=== PATIENT | male | born 1960 | race Caucasian/White ===

== ENCOUNTER 2017-03-06 08:34 | Inpatient (IN) | payer OTHER, MEDICAID ==
[~2017-03-06] VITALS: Ht 193 cm; Wt 96.8 kg
[2017-03-06] VITALS (12 sets, daily range): BP systolic 93–115; BP diastolic 44–62
[2017-03-06] MEDS ORDERED: COLL30OI TP (09:14)
[2017-03-06] MEDS ORDERED: AMIO200T2 PO (09:14)
[2017-03-06] MEDS ORDERED: NICO-650 TD (09:14)
[2017-03-06] MEDS ORDERED: LACT30L PO (09:14)
[2017-03-06] MEDS ORDERED: ACET-784 PO (09:14)
[2017-03-06] MEDS ORDERED: FAMO20 PO (09:14)
[2017-03-06] MEDS ORDERED: DSS100 PO (09:14)
[2017-03-06] MEDS ORDERED: CEFE2I IVP (09:14)
[2017-03-06] MEDS ORDERED: SUCR1TAB PO (09:14)
[2017-03-06] MEDS ORDERED: ACET-66 PO (09:14)
[2017-03-06] MEDS ORDERED: VANC750F IV (09:14)
[2017-03-06] MEDS ORDERED: HEPA500017 SQ (09:14)
[2017-03-06] MEDS ORDERED: BISA10S PR (09:14)
[2017-03-06] MEDS ORDERED: TRAM50TA4 PO (09:14)
[2017-03-06] MEDS ORDERED: RISP1 PO (09:14)
[2017-03-06] MEDS ORDERED: GABA-533 PO (09:14)
[2017-03-06] MEDS ORDERED: FE PR (09:14)
[2017-03-06] MEDS ORDERED: DILT30 PO (09:14)
[2017-03-06] MEDS ORDERED: LISI-661 PO (09:14)
[2017-03-06] MEDS ORDERED: MOM30 PO (09:14)
[2017-03-06] MEDS ORDERED: INSULIN LISPRO SQ (09:14)
[2017-03-06] MEDS ORDERED: SODIUM CHLORIDE 0.9% 1,000 ML IV ONE ×3 (10:15→11:30)
[2017-03-06 10:36] LABS: BASOPHILS # (AUTO) 0.01 K/uL (0.00-0.20); BASOPHILS % (AUTO) 0.1 % (0.0-2.0); EOSINOPHILS % (AUTO) 0.03 % (1.0-6.0); HEMATOCRIT 23.2 % (41-53); HEMOGLOBIN 7.8 g/dL (13.5-17.5); LYMPHOCYTES # (AUTO) 0.4 K/uL (1.0-4.8); LYMPHOCYTES % (AUTO) 8.1 % (22.0-44.0); MEAN CORPUSCULAR HEMOGLOBIN 27.4 pg (26.0-34.0); MEAN CORPUSCULAR HGB CONC 33.8 G/dL (31.0-37.0); MEAN CORPUSCULAR VOLUME 81 fL (80-100); MONOCYTES # (AUTO) 0.4 K/uL (0.1-1.0); MONOCYTES % (AUTO) 7.1 % (2.0-9.0); NEUTROPHILS # (AUTO) 4.7 K/uL (1.8-7.7); NEUTROPHILS % (AUTO) 84.7 % (40.0-70.0); PLATELET COUNT (AUTO) 406 K/uL (150-450); RED BLOOD CELL COUNT(AUTO) 2.86 MIL/uL (4.50-5.90); RED CELL DISTRIBUTION WIDTH 17.5 % (11.5-14.5); WHITE BLOOD COUNT (AUTO) 5.5 K/uL (4.5-11.0)
[2017-03-06] MEDS ORDERED: DEXTROSE 50%-WATER 25 GM/50 ML SYRINGE IVP ONE ×2 (10:45→12:45)
[2017-03-06 10:54] LABS: SALICYLATE < 2.8 mg/dL (2.8-20.0)
[2017-03-06 10:55] LABS: ANION GAP 11 mmol/L (8-16); CALCIUM, TOTAL 8.5 mg/dL (8.8-10.5); CARBON DIOXIDE 21 mmol/L (22-29); CHLORIDE 99 mmol/L (98-107); CREATININE 2.22 mg/dL (0.60-1.30); GLOMERULAR FILTR. RATE CALC 31 mL/min (>60); LACTIC ACID 0.8 mmol/L (0.4-2.0); POTASSIUM 3.9 mmol/L (3.5-5.1); SODIUM SERUM 131 mmol/L (136-145); UREA NITROGEN, BLOOD 74 mg/dL (7-18)
[2017-03-06 10:57] LABS: TROPONIN I 0.07 ng/mL (0.00-0.05)
[2017-03-06 10:59] LABS: ALANINE AMINOTRANSFERASE 19 U/L (12-78); ALBUMIN 1.7 g/dL (3.4-5.0); ASPARTATE AMINOTRANSFERASE 37 U/L (15-37); BILIRUBIN,TOTAL 0.3 mg/dL (0.1-1.0); TOTAL PROTEIN, SERUM 7.4 g/dL (6.4-8.2)
[2017-03-06 11:02] LABS: RBC MORPHOLOGY COMMENT ABNORMAL RBC MORPH
[2017-03-06 11:04] LABS: B-TYPE NATRIURETIC PEPTIDE 548 pg/mL (0-100)
[2017-03-06 11:16] LABS: ACETAMINOPHEN < 2 mcg/mL (10-30)
[2017-03-06 11:30] LABS: INR 1.1 (0.9-1.1); PROTHROMBIN TIME 11.5 SEC (9.4-11.6)
[2017-03-06 12:05] LABS: GLUCOSE, URINE (UA) NEGATIVE (NEGATIVE); KETONES,URINE NEGATIVE (NEGATIVE); LEUKOCYTE ESTERASE ,URINE NEGATIVE (NEGATIVE); OCCULT BLOOD,URINE LARGE (NEGATIVE); PROTEIN,URINE POS 1+ (NEGATIVE)
[2017-03-06 12:08] LABS: APPEARANCE,URINE HAZY (CLEAR); WBC,URINE 0-2 /HPF (0-5)
[2017-03-06] MEDS ORDERED: ONDANSETRON HCL 4 MG/2 ML VIAL IVP PRN ×2 (13:30→19:15)
[2017-03-06] MEDS ORDERED: ACETAMINOPHEN 325 MG TABLET PO PRN ×2 (13:30→19:15)
[2017-03-06] MEDS ORDERED: 0.9% SODIUM CHLORIDE 10 ML SYRINGE IVP PRN (13:30)
[2017-03-06 17:47] LABS: GLUCOSE,POINT OF CARE 136 MG/DL (70-110)
[2017-03-06 17:47] LABS: GLUCOSE,POINT OF CARE 61 MG/DL (70-110)
[2017-03-06 17:47] LABS: GLUCOSE,POINT OF CARE 68 MG/DL (70-110)
[2017-03-06 17:47] LABS: GLUCOSE,POINT OF CARE 103 MG/DL (70-110)
[2017-03-06 17:52] LABS: GLUCOSE,POINT OF CARE 95 MG/DL (70-110)
[2017-03-06 17:52] LABS: GLUCOSE,POINT OF CARE 119 MG/DL (70-110)
[2017-03-06 18:12] LABS: GLUCOSE,POINT OF CARE 137 MG/DL (70-110)
[2017-03-06] MEDS ORDERED: DEXTROSE 50%-WATER 25 GM/50 ML SYRINGE IVP PRN (19:00)
[2017-03-06] MEDS ORDERED: NICOTINE 21 MG/24 HOUR PATCH TD SCH (19:15)
[2017-03-06] MEDS ORDERED: *CLINICAL-CEFEPIME DOSING CLINICAL ONE ×2 (19:15)
[2017-03-06 20:06] LABS: HEMATOCRIT 21.4 % (41-53); HEMOGLOBIN 7.1 g/dL (13.5-17.5)
[2017-03-06] MEDS ORDERED: VANCOMYCIN HCL 1.5 GM in DEXTROSE 5%-WATER 250 ML IV ONE (21:00)
[2017-03-06] MEDS ORDERED: CEFEPIME HCL 1 GM in DEXTROSE 5%-WATER 50 ML IV ONE (21:00)
[2017-03-06] MEDS: RisperiDONE 1 MG TABLET PO SCH (22:29)
[2017-03-06] MEDS: SUCRALFATE 1 GM TABLET PO SCH (22:29)
[2017-03-06] MEDS: DILTIAZEM HCL 30 MG TABLET PO SCH (22:30)
[2017-03-06] MEDS: AMIODARONE HCL 200 MG TABLET PO SCH (22:30)
[2017-03-06] MEDS: LACTULOSE 20 GM/30 ML SOLUTION UDCUP PO SCH (22:30)
[2017-03-06] MEDS: FAMOTIDINE 20 MG TABLET PO SCH (22:30)
[2017-03-06] MEDS: DOCUSATE SODIUM 100 MG CAPSULE PO SCH (22:50)
[2017-03-06] MEDS: SODIUM CHLORIDE 0.9% 1,000 ML IV SCH (22:51)
[2017-03-06] MEDS: GABAPENTIN 400 MG CAPSULE PO SCH (23:24)
[2017-03-07] VITALS (11 sets, daily range): BP systolic 103–158; BP diastolic 49–98
[2017-03-07] MEDS ORDERED: SODIUM CHLORIDE 0.9% 250 ML IV ONE (00:51)
[2017-03-07 07:08] LABS: BASOPHILS # (AUTO) 0.02 K/uL (0.00-0.20); BASOPHILS % (AUTO) 0.2 % (0.0-2.0); EOSINOPHILS # (AUTO) 0.02 K/uL (0.00-0.70); EOSINOPHILS % (AUTO) 0.38 % (1.0-6.0); HEMATOCRIT 23.3 % (41-53); HEMOGLOBIN 7.8 g/dL (13.5-17.5); LYMPHOCYTES # (AUTO) 1.1 K/uL (1.0-4.8); LYMPHOCYTES % (AUTO) 17.8 % (22.0-44.0); MEAN CORPUSCULAR HEMOGLOBIN 27.9 pg (26.0-34.0); MEAN CORPUSCULAR HGB CONC 33.6 G/dL (31.0-37.0); MEAN CORPUSCULAR VOLUME 83 fL (80-100); MONOCYTES # (AUTO) 0.6 K/uL (0.1-1.0); NEUTROPHILS # (AUTO) 4.6 K/uL (1.8-7.7); NEUTROPHILS % (AUTO) 72.6 % (40.0-70.0); PLATELET COUNT (AUTO) 363 K/uL (150-450); RED BLOOD CELL COUNT(AUTO) 2.81 MIL/uL (4.50-5.90); RED CELL DISTRIBUTION WIDTH 17.2 % (11.5-14.5); WHITE BLOOD COUNT (AUTO) 6.3 K/uL (4.5-11.0)
[2017-03-07 07:47] LABS: ALBUMIN 1.8 g/dL (3.4-5.0); BILIRUBIN,TOTAL 0.4 mg/dL (0.1-1.0); CALCIUM, TOTAL 8.1 mg/dL (8.8-10.5); POTASSIUM 3.7 mmol/L (3.5-5.1); THYROID STIMULATING HORMONE 19.28 uIU/mL (0.36-3.74); TOTAL PROTEIN, SERUM 7.7 g/dL (6.4-8.2)
[2017-03-07] MEDS: FOLIC ACID 1 MG TABLET PO SCH (09:50)
[2017-03-07] MEDS: VANCOMYCIN HCL 1.5 GM in DEXTROSE 5%-WATER 250 ML IV SCH (09:50)
[2017-03-07] MEDS: BISACODYL 10 MG RECTAL RECTAL SUPPOSITORY PR SCH (09:50)
[2017-03-07] MEDS: GABAPENTIN 400 MG CAPSULE PO SCH ×3 (09:51→20:59)
[2017-03-07] MEDS: MULTIVITAMINS, THERAPEUTIC TABLET PO SCH (09:51)
[2017-03-07] MEDS: MAGNESIUM HYDROXIDE SUSPENSION 30 ML UDCUP PO SCH (09:51)
[2017-03-07] MEDS: DOCUSATE SODIUM 100 MG CAPSULE PO SCH ×2 (09:51→19:57)
[2017-03-07] MEDS: LACTULOSE 20 GM/30 ML SOLUTION UDCUP PO SCH ×3 (09:52→19:57)
[2017-03-07] MEDS: DILTIAZEM HCL 30 MG TABLET PO SCH ×3 (09:52→20:59)
[2017-03-07] MEDS: SUCRALFATE 1 GM TABLET PO SCH ×4 (09:52→20:59)
[2017-03-07] MEDS: RisperiDONE 1 MG TABLET PO SCH ×2 (09:53→20:59)
[2017-03-07] MEDS: FAMOTIDINE 20 MG TABLET PO SCH ×2 (09:54→20:59)
[2017-03-07] MEDS: AMIODARONE HCL 200 MG TABLET PO SCH ×2 (09:54→19:58)
[2017-03-07] MEDS: THIAMINE HCL 100 MG TABLET PO SCH (09:56)
[2017-03-07 10:41] LABS: RBC MORPHOLOGY COMMENT ABNORMAL RBC MORPH
[2017-03-07 11:52] LABS: GLUCOSE,POINT OF CARE 249 MG/DL (70-110)
[2017-03-07 11:52] LABS: GLUCOSE,POINT OF CARE 241 MG/DL (70-110)
[2017-03-07 11:52] LABS: GLUCOSE COMMENT 1 Doctor Notified; GLUCOSE,POINT OF CARE 305 MG/DL (70-110)
[2017-03-07] MEDS: SODIUM CHLORIDE 0.9% 1,000 ML IV SCH (14:10)
[2017-03-07] MEDS: CEFEPIME HCL 2 GM in DEXTROSE 5%-WATER 50 ML IV SCH (14:10)
[2017-03-07] MEDS: TraMADol HCL 50 MG TABLET PO PRN (14:25)
[2017-03-07 18:36] LABS: RED BLOOD CELL COUNT(AUTO) 2.85 MIL/uL (4.50-5.90); WHITE BLOOD COUNT (AUTO) 6.1 K/uL (4.5-11.0)
[2017-03-07 18:37] LABS: BASOPHILS % (AUTO) 0.2 % (0.0-2.0); EOSINOPHILS % (AUTO) 0.6 % (1.0-6.0); HEMATOCRIT 23.8 % (41-53); HEMOGLOBIN 8.1 g/dL (13.5-17.5); LYMPHOCYTES # (AUTO) 1.3 K/uL (1.0-4.8); LYMPHOCYTES % (AUTO) 20.9 % (22.0-44.0); MEAN CORPUSCULAR HEMOGLOBIN 28.3 pg (26.0-34.0); MEAN CORPUSCULAR HGB CONC 33.8 G/dL (31.0-37.0); MEAN CORPUSCULAR VOLUME 84 fL (80-100); MONOCYTES # (AUTO) 0.5 K/uL (0.1-1.0); MONOCYTES % (AUTO) 8.8 % (2.0-9.0); NEUTROPHILS # (AUTO) 4.2 K/uL (1.8-7.7); NEUTROPHILS % (AUTO) 69.5 % (40.0-70.0); PLATELET COUNT (AUTO) 377 K/uL (150-450); RED CELL DISTRIBUTION WIDTH 16.8 % (11.5-14.5)
[2017-03-07] MEDS: SOD FERRIC GLUC COMPLX/SUCROSE 125 MG in SODIUM CHLORIDE 0.9% 100 ML IV SCH (19:57)
[2017-03-07 20:02] LABS: GLUCOSE COMMENT 1 Received Meds; GLUCOSE,POINT OF CARE 229 MG/DL (70-110)
[2017-03-07 20:32] LABS: GLUCOSE COMMENT 1 Received Meds; GLUCOSE,POINT OF CARE 286 MG/DL (70-110)
[2017-03-07 21:02] LABS: GLUCOSE COMMENT 1 Received Meds; GLUCOSE,POINT OF CARE 261 MG/DL (70-110)
[2017-03-08 04:00] VITALS: BP 109/58
[2017-03-08] MEDS: SODIUM CHLORIDE 0.9% 1,000 ML IV SCH (04:23)
[2017-03-08 07:12] LABS: CALCIUM, TOTAL 7.9 mg/dL (8.8-10.5); CREATININE 1.93 mg/dL (0.60-1.30); POTASSIUM 3.7 mmol/L (3.5-5.1)
[2017-03-08 07:54] VITALS: BP 100/50
[2017-03-08] MEDS ORDERED: NICOTINE 21 MG/24 HOUR PATCH TD SCH ×2 (08:51→09:00)
[2017-03-08] MEDS: GABAPENTIN 400 MG CAPSULE PO SCH ×2 (09:00→16:25)
[2017-03-08] MEDS: RisperiDONE 1 MG TABLET PO SCH (09:00)
[2017-03-08] MEDS: DILTIAZEM HCL 30 MG TABLET PO SCH ×2 (09:00→16:25)
[2017-03-08] MEDS: LACTULOSE 20 GM/30 ML SOLUTION UDCUP PO SCH ×2 (09:09→16:25)
[2017-03-08] MEDS: FAMOTIDINE 20 MG TABLET PO SCH (09:09)
[2017-03-08] MEDS: SUCRALFATE 1 GM TABLET PO SCH ×3 (09:09→16:25)
[2017-03-08] MEDS: MULTIVITAMINS, THERAPEUTIC TABLET PO SCH (09:10)
[2017-03-08] MEDS: AMIODARONE HCL 200 MG TABLET PO SCH (09:10)
[2017-03-08] MEDS: THIAMINE HCL 100 MG TABLET PO SCH (09:10)
[2017-03-08] MEDS: DOCUSATE SODIUM 100 MG CAPSULE PO SCH (09:11)
[2017-03-08] MEDS: FOLIC ACID 1 MG TABLET PO SCH (09:11)
[2017-03-08] MEDS: VANCOMYCIN HCL 1.5 GM in DEXTROSE 5%-WATER 250 ML IV SCH (09:21)
[2017-03-08 12:04] VITALS: BP 99/67
[2017-03-08] MEDS: CEFEPIME HCL 2 GM in DEXTROSE 5%-WATER 50 ML IV SCH (12:23)
[2017-03-08] MEDS: MAGNESIUM HYDROXIDE SUSPENSION 30 ML UDCUP PO SCH (12:23)
[2017-03-08 12:31] VITALS: BP 110/79
[2017-03-08] MEDS ORDERED: PNEUMOCOCCAL VACCINE POLYVALENT 0.5 ML VIAL [PPSV23] IM ONE (15:15)
[2017-03-08 15:50] VITALS: BP 110/59
[2017-03-08] MEDS: BISACODYL 10 MG RECTAL RECTAL SUPPOSITORY PR SCH (16:06)
[2017-03-08] MEDS: SOD FERRIC GLUC COMPLX/SUCROSE 125 MG in SODIUM CHLORIDE 0.9% 100 ML IV SCH (16:26)
[2017-03-08] MEDS ORDERED: FOLI1 PO (17:16)
[2017-03-08] MEDS ORDERED: MULT1TAB28 PO (17:17)
[2017-03-08] MEDS ORDERED: THIA100 PO (17:18)
[2017-03-08] MEDS ORDERED: INSULIN ASPART 100 UNITS/ML SQ ONE (17:30)
[2017-03-08] MEDS: TraMADol HCL 50 MG TABLET PO PRN (18:30)
[2017-03-09 08:57] LABS: GLUCOSE,POINT OF CARE 191 MG/DL (70-110)
[2017-03-09 08:57] LABS: GLUCOSE,POINT OF CARE 392 MG/DL (70-110)
[2017-03-09 08:57] LABS: GLUCOSE,POINT OF CARE 239 MG/DL (70-110)
== END 2017-03-08 18:30 | DRG 682 ==
LOC: EMS 08:36 → AHU 17:10 → 5S 22:35
PROVIDERS: ADMIT Internal Medicine; ATTEND Internal Medicine
PROC: 30233N1 Transfusion of Nonautologous Red Blood Cells into Peripheral Vein, Percutaneous Approach (ICD-10-PCS; principal; 2017-03-06)
DX: N17.9 Acute kidney failure, unspecified (principal); G92 Toxic encephalopathy; R18.8 Other ascites; E11.649 Type 2 diabetes mellitus with hypoglycemia without coma; M86.9 Osteomyelitis, unspecified; E87.1 Hypo-osmolality and hyponatremia; E86.0 Dehydration; D64.9 Anemia, unspecified; I73.9 Peripheral vascular disease, unspecified; I10 Essential (primary) hypertension; E11.69 Type 2 diabetes mellitus with other specified complication; K21.9 Gastro-esophageal reflux disease without esophagitis; K80.20 Calculus of gallbladder without cholecystitis without obstruction; Z86.14 Personal history of Methicillin resistant Staphylococcus aureus infection; Z89.422 Acquired absence of other left toe(s); Z89.421 Acquired absence of other right toe(s); Z88.0 Allergy status to penicillin
CPT/HCPCS: 36430; 70450; 73552; 73718; 76705; 82270; 82271; 82607; 82728; 82746; 82948; 82962; 83540; 83550; 83605; 84439; 84443; 85014; 85018; 86850; 86900; 86901; 86920; 87040; 87070; 87081; 87106; 87205; 90471; 93005; 96361; 96374; 99285; G0480; G0481; J0692; J1815; J2916; J3370; J7030; J7050; J7060; P9016

== ENCOUNTER 2017-03-16 15:48 | Inpatient (IN) | payer OTHER, MEDICAID ==
[~2017-03-16] VITALS: Ht 193 cm; Wt 93.5 kg
[~2017-03-16 15:48] MED LIST: ACET-66 PO; ACET-784 PO; AMIO200T2 PO; BISA10S PR; CEFE2I IVP; COLL30OI TP; DILT30 PO; DSS100 PO; FAMO20 PO; FE PR; FOLI1 PO; GABA-533 PO; HEPA500018 SQ; INSULIN LISPRO SQ; LACT30L PO; LISI-661 PO; MOM30 PO; MULT1TAB28 PO; NICO-650 TD; RISP1 PO; SUCR1TAB PO; THIA100 PO; TRAM50TA4 PO; VANC750F IV
[2017-03-16] MEDS ORDERED: SODIUM CHLORIDE 0.9% 1,000 ML IV ONE ×2 (16:15→17:15)
[2017-03-16 16:33] LABS: EOSINOPHILS % (AUTO) 0.6 % (1.0-6.0); HEMATOCRIT 23.6 % (41-53); LYMPHOCYTES # (AUTO) 0.9 K/uL (1.0-4.8); LYMPHOCYTES % (AUTO) 9.6 % (22.0-44.0); MEAN CORPUSCULAR HEMOGLOBIN 28.3 pg (26.0-34.0); MEAN CORPUSCULAR HGB CONC 33.7 G/dL (31.0-37.0); MEAN CORPUSCULAR VOLUME 84 fL (80-100); MONOCYTES # (AUTO) 1.2 K/uL (0.1-1.0); MONOCYTES % (AUTO) 11.8 % (2.0-9.0); NEUTROPHILS # (AUTO) 7.7 K/uL (1.8-7.7); PLATELET COUNT (AUTO) 437 K/uL (150-450); RED BLOOD CELL COUNT(AUTO) 2.82 MIL/uL (4.50-5.90); RED CELL DISTRIBUTION WIDTH 17.9 % (11.5-14.5); WHITE BLOOD COUNT (AUTO) 9.9 K/uL (4.5-11.0)
[2017-03-16 16:49] LABS: ALANINE AMINOTRANSFERASE 18 U/L (12-78); ALBUMIN 1.9 g/dL (3.4-5.0); ANION GAP 15 mmol/L (8-16); ASPARTATE AMINOTRANSFERASE 45 U/L (15-37); BILIRUBIN,TOTAL 0.4 mg/dL (0.1-1.0); CALCIUM, TOTAL 7.9 mg/dL (8.8-10.5); CARBON DIOXIDE 17 mmol/L (22-29); CHLORIDE 91 mmol/L (98-107); CREATININE 2.79 mg/dL (0.60-1.30); GLOMERULAR FILTR. RATE CALC 24 mL/min (>60); POTASSIUM 4.8 mmol/L (3.5-5.1); TOTAL PROTEIN, SERUM 8.1 g/dL (6.4-8.2)
[2017-03-16 16:51] LABS: SODIUM SERUM 123 mmol/L (136-145)
[2017-03-16 16:52] LABS: UREA NITROGEN, BLOOD 110 mg/dL (7-18)
[2017-03-16] MEDS ORDERED: INSU100C14 SQ (17:06)
[2017-03-16 17:07] LABS: RBC MORPHOLOGY COMMENT ABNORMAL RBC MORPH
[2017-03-16 18:01] LABS: LACTIC ACID 2.2 mmol/L (0.4-2.0)
[2017-03-16] MEDS ORDERED: ACETAMINOPHEN 325 MG TABLET PO PRN (18:15)
[2017-03-16] MEDS ORDERED: ONDANSETRON HCL 4 MG/2 ML VIAL IVP PRN (18:15)
[2017-03-16] MEDS ORDERED: 0.9% SODIUM CHLORIDE 10 ML SYRINGE IVP PRN (18:15)
[2017-03-16 18:22] LABS: GLUCOSE,POINT OF CARE 289 MG/DL (70-110)
[2017-03-16 18:28] LABS: REFLEX LACTIC ACID? YES YES
[2017-03-16 20:10] VITALS: BP 117/63
[2017-03-16 23:24] VITALS: BP 106/55
[2017-03-17] MEDS ORDERED: OxyCODONE HCL/ACETAMINOPHEN 5-325 MG TABLET PO PRN (01:00)
[2017-03-17] MEDS ORDERED: MAGNESIUM HYDROXIDE SUSPENSION 30 ML UDCUP PO PRN (01:00)
[2017-03-17] MEDS ORDERED: ONDANSETRON HCL 4 MG/2 ML VIAL IVP PRN (01:00)
[2017-03-17] MEDS ORDERED: ACETAMINOPHEN 325 MG TABLET PO PRN (01:00)
[2017-03-17] MEDS: DOCUSATE SODIUM 100 MG CAPSULE PO SCH ×3 (01:00→20:06)
[2017-03-17] MEDS ORDERED: 0.9% SODIUM CHLORIDE 10 ML SYRINGE IVP PRN (01:00)
[2017-03-17] MEDS: SODIUM CHLORIDE 0.9% 1,000 ML IV SCH ×3 (01:21→20:03)
[2017-03-17 05:35] VITALS: BP 114/59
[2017-03-17 06:54] LABS: CALCIUM, TOTAL 7.8 mg/dL (8.8-10.5); CREATININE 2.68 mg/dL (0.60-1.30); MAGNESIUM 1.9 mg/dL (1.80-2.40); PHOSPHORUS 4.7 mg/dL (2.5-4.9); POTASSIUM 4.6 mmol/L (3.5-5.1)
[2017-03-17 08:04] VITALS: BP 116/68
[2017-03-17] MEDS ORDERED: DEXTROSE 50%-WATER 25 GM/50 ML SYRINGE IVP PRN (08:45)
[2017-03-17] MEDS ORDERED: INSULIN ASPART 100 UNITS/ML SQ PRN (08:45)
[2017-03-17] MEDS ORDERED: PANTOPRAZOLE SODIUM 40 MG/VIAL IVP SCH (09:00)
[2017-03-17 11:52] VITALS: BP 116/80
[2017-03-17] MEDS ORDERED: INSULIN REGULAR, HUMAN 100 UNITS/ML SQ ONE (12:30)
[2017-03-17] MEDS ORDERED: INSULIN ASPART 100 UNITS/ML SQ ONE (12:30)
[2017-03-17 13:07] LABS: GLUCOSE COMMENT 1 Received Meds; GLUCOSE,POINT OF CARE 511 MG/DL (70-110)
[2017-03-17] MEDS: NICOTINE 21 MG/24 HOUR PATCH TD SCH (15:15)
[2017-03-17] MEDS: FAMOTIDINE 20 MG TABLET PO SCH ×2 (15:15→23:00)
[2017-03-17] MEDS ORDERED: CEFEPIME HCL 2 GM/VIAL IVP SCH (15:15)
[2017-03-17] MEDS ORDERED: VANCOMYCIN HCL 1 GM/D5% WATER 200 ML IV PRN (15:30)
[2017-03-17 16:24] VITALS: BP 119/65
[2017-03-17] MEDS: HEPARIN SODIUM,PORCINE 5,000 UNITS/ML VIAL SQ SCH ×2 (17:40→20:04)
[2017-03-17] MEDS: DILTIAZEM HCL 30 MG TABLET PO SCH ×2 (17:40→20:05)
[2017-03-17] MEDS: GABAPENTIN 400 MG CAPSULE PO SCH ×2 (17:40→20:05)
[2017-03-17] MEDS: SUCRALFATE 1 GM TABLET PO SCH ×2 (17:40→20:05)
[2017-03-17] MEDS: LACTULOSE 20 GM/30 ML SOLUTION UDCUP PO SCH ×2 (17:40→20:03)
[2017-03-17] MEDS: CEFEPIME HCL 2 GM in DEXTROSE 5%-WATER 50 ML IV SCH (17:40)
[2017-03-17] MEDS: INSULIN ASPART 100 UNITS/ML SQ PRN ×2 (17:57→20:12)
[2017-03-17] MEDS ORDERED: VANCOMYCIN HCL 1 GM/D5% WATER 200 ML IV ONE (18:00)
[2017-03-17 19:38] VITALS: BP 114/64
[2017-03-17] MEDS ORDERED: VANCOMYCIN HCL 750 MG in DEXTROSE 5%-WATER 150 ML IV SCH (20:00)
[2017-03-17] MEDS: LISINOPRIL 10 MG TABLET PO SCH (20:05)
[2017-03-17] MEDS: AMIODARONE HCL 200 MG TABLET PO SCH (20:05)
[2017-03-17] MEDS: RisperiDONE 1 MG TABLET PO SCH (20:05)
[2017-03-17 22:22] LABS: GLUCOSE COMMENT 1 Received Meds; GLUCOSE,POINT OF CARE 315 MG/DL (70-110)
[2017-03-17 22:23] LABS: GLUCOSE COMMENT 1 Received Meds; GLUCOSE,POINT OF CARE 206 MG/DL (70-110)
[2017-03-17 23:30] VITALS: BP 102/47
[2017-03-18] MEDS: CEFEPIME HCL 2 GM in DEXTROSE 5%-WATER 50 ML IV SCH ×2 (05:05→16:04)
[2017-03-18 05:14] VITALS: BP 95/51
[2017-03-18] MEDS: INSULIN ASPART 100 UNITS/ML SQ PRN ×4 (06:05→21:00)
[2017-03-18] MEDS: SODIUM CHLORIDE 0.9% 1,000 ML IV SCH (07:00)
[2017-03-18 07:06] LABS: EOSINOPHILS % (AUTO) 0.1 % (1.0-6.0); HEMATOCRIT 21.1 % (41-53); HEMOGLOBIN 7.2 g/dL (13.5-17.5); LYMPHOCYTES # (AUTO) 0.6 K/uL (1.0-4.8); LYMPHOCYTES % (AUTO) 5.8 % (22.0-44.0); MEAN CORPUSCULAR HEMOGLOBIN 30.1 pg (26.0-34.0); MEAN CORPUSCULAR VOLUME 89 fL (80-100); MONOCYTES # (AUTO) 0.9 K/uL (0.1-1.0); MONOCYTES % (AUTO) 8.3 % (2.0-9.0); NEUTROPHILS # (AUTO) 8.9 K/uL (1.8-7.7); PLATELET COUNT (AUTO) 410 K/uL (150-450); RED BLOOD CELL COUNT(AUTO) 2.38 MIL/uL (4.50-5.90); RED CELL DISTRIBUTION WIDTH 18.4 % (11.5-14.5); WHITE BLOOD COUNT (AUTO) 10.3 K/uL (4.5-11.0)
[2017-03-18 07:19] VITALS: BP 100/55
[2017-03-18 07:39] LABS: CALCIUM, TOTAL 7.9 mg/dL (8.8-10.5); CREATININE 2.54 mg/dL (0.60-1.30); POTASSIUM 4.6 mmol/L (3.5-5.1)
[2017-03-18 07:48] LABS: GLUCOSE COMMENT 1 Received Meds; GLUCOSE,POINT OF CARE 242 MG/DL (70-110)
[2017-03-18 08:42] LABS: NEUTROPHILS % (AUTO) 85.8 % (40.0-70.0)
[2017-03-18 08:43] LABS: RBC MORPHOLOGY COMMENT ABNORMAL RBC MORPH
[2017-03-18] MEDS: BISACODYL 10 MG RECTAL RECTAL SUPPOSITORY PR SCH (09:00)
[2017-03-18] MEDS: RisperiDONE 1 MG TABLET PO SCH ×2 (09:58→20:59)
[2017-03-18] MEDS: LISINOPRIL 10 MG TABLET PO SCH ×2 (09:58→23:01)
[2017-03-18] MEDS: GABAPENTIN 400 MG CAPSULE PO SCH ×3 (09:58→20:59)
[2017-03-18] MEDS: DILTIAZEM HCL 30 MG TABLET PO SCH ×3 (09:58→20:59)
[2017-03-18] MEDS: MULTIVITAMINS, THERAPEUTIC TABLET PO SCH (09:58)
[2017-03-18] MEDS: AMIODARONE HCL 200 MG TABLET PO SCH ×2 (09:58→20:59)
[2017-03-18] MEDS: FAMOTIDINE 20 MG TABLET PO SCH ×2 (09:58→20:59)
[2017-03-18] MEDS: THIAMINE HCL 100 MG TABLET PO SCH (09:58)
[2017-03-18] MEDS: LACTULOSE 20 GM/30 ML SOLUTION UDCUP PO SCH ×3 (09:59→20:59)
[2017-03-18] MEDS: DOCUSATE SODIUM 100 MG CAPSULE PO SCH ×2 (09:59→20:59)
[2017-03-18] MEDS: MAGNESIUM HYDROXIDE SUSPENSION 30 ML UDCUP PO SCH (09:59)
[2017-03-18] MEDS: SUCRALFATE 1 GM TABLET PO SCH ×4 (09:59→23:02)
[2017-03-18] MEDS: HEPARIN SODIUM,PORCINE 5,000 UNITS/ML VIAL SQ SCH ×3 (10:00→20:59)
[2017-03-18] MEDS: NICOTINE 21 MG/24 HOUR PATCH TD SCH (10:00)
[2017-03-18] MEDS: FOLIC ACID 1 MG TABLET PO SCH (10:01)
[2017-03-18] MEDS ORDERED: SODIUM BICARBONATE 100 MEQ in SODIUM CHLORIDE 0.45% 1,000 ML IV ONE (10:15)
[2017-03-18 12:09] VITALS: BP 102/60
[2017-03-18] MEDS: OxyCODONE HCL/ACETAMINOPHEN 5-325 MG TABLET PO PRN (12:40)
[2017-03-18 15:15] VITALS: BP 110/66
[2017-03-18 19:23] LABS: GLUCOSE COMMENT 1 Received Meds; GLUCOSE,POINT OF CARE 195 MG/DL (70-110)
[2017-03-18 19:23] LABS: GLUCOSE COMMENT 1 Received Meds; GLUCOSE,POINT OF CARE 219 MG/DL (70-110)
[2017-03-18 20:51] VITALS: BP 122/55
[2017-03-18] MEDS: INSULIN DETEMIR 100 UNITS/ML SQ SCH (21:00)
[2017-03-18 23:00] VITALS: BP 94/50
[2017-03-19] VITALS (14 sets, daily range): BP systolic 95–135; BP diastolic 52–98
[2017-03-19] MEDS ORDERED: SODIUM CHLORIDE 0.9% 250 ML IV ONE ×2 (03:44→14:45)
[2017-03-19] MEDS: CEFEPIME HCL 2 GM in DEXTROSE 5%-WATER 50 ML IV SCH ×2 (03:58→16:30)
[2017-03-19] MEDS: DEXTROSE 50%-WATER 25 GM/50 ML SYRINGE IVP PRN (06:39)
[2017-03-19 06:49] LABS: CALCIUM, TOTAL 7.9 mg/dL (8.8-10.5); CREATININE 2.58 mg/dL (0.60-1.30); POTASSIUM 4.2 mmol/L (3.5-5.1)
[2017-03-19] MEDS ORDERED: VANCOMYCIN HCL 1 GM/D5% WATER 200 ML IV ONE (08:15)
[2017-03-19] MEDS: SUCRALFATE 1 GM TABLET PO SCH ×4 (08:29→23:25)
[2017-03-19] MEDS: NICOTINE 21 MG/24 HOUR PATCH TD SCH (08:29)
[2017-03-19] MEDS: GABAPENTIN 400 MG CAPSULE PO SCH ×3 (08:29→21:51)
[2017-03-19] MEDS: DILTIAZEM HCL 30 MG TABLET PO SCH ×3 (08:29→23:25)
[2017-03-19] MEDS: DOCUSATE SODIUM 100 MG CAPSULE PO SCH ×2 (08:30→21:51)
[2017-03-19] MEDS: MULTIVITAMINS, THERAPEUTIC TABLET PO SCH (08:30)
[2017-03-19] MEDS: FAMOTIDINE 20 MG TABLET PO SCH ×2 (08:30→21:51)
[2017-03-19] MEDS: THIAMINE HCL 100 MG TABLET PO SCH (08:30)
[2017-03-19] MEDS: LACTULOSE 20 GM/30 ML SOLUTION UDCUP PO SCH ×3 (08:30→21:50)
[2017-03-19] MEDS: RisperiDONE 1 MG TABLET PO SCH ×2 (08:30→21:51)
[2017-03-19] MEDS: HEPARIN SODIUM,PORCINE 5,000 UNITS/ML VIAL SQ SCH (08:30)
[2017-03-19] MEDS: AMIODARONE HCL 200 MG TABLET PO SCH ×2 (08:30→21:51)
[2017-03-19] MEDS: MAGNESIUM HYDROXIDE SUSPENSION 30 ML UDCUP PO SCH (08:30)
[2017-03-19] MEDS: LISINOPRIL 10 MG TABLET PO SCH ×2 (08:30→21:00)
[2017-03-19] MEDS: FOLIC ACID 1 MG TABLET PO SCH (08:30)
[2017-03-19] MEDS: BISACODYL 10 MG RECTAL RECTAL SUPPOSITORY PR SCH (09:00)
[2017-03-19 09:57] LABS: GLUCOSE COMMENT 1 Received Meds; GLUCOSE,POINT OF CARE 218 MG/DL (70-110)
[2017-03-19 09:58] LABS: GLUCOSE,POINT OF CARE 84 MG/DL (70-110)
[2017-03-19 09:58] LABS: GLUCOSE COMMENT 1 Juice/Food/D50 Given; GLUCOSE,POINT OF CARE 45 MG/DL (70-110)
[2017-03-19] MEDS ORDERED: SODIUM BICARBONATE 75 MEQ in SODIUM CHLORIDE 0.45% 1,000 ML IV ONE (11:00)
[2017-03-19 11:08] LABS: BASOPHILS # (AUTO) 0.01 K/uL (0.00-0.20); BASOPHILS % (AUTO) 0.1 % (0.0-2.0); EOSINOPHILS # (AUTO) 0.02 K/uL (0.00-0.70); EOSINOPHILS % (AUTO) 0.25 % (1.0-6.0); LYMPHOCYTES # (AUTO) 0.5 K/uL (1.0-4.8); LYMPHOCYTES % (AUTO) 6.3 % (22.0-44.0); MEAN CORPUSCULAR HEMOGLOBIN 30.6 pg (26.0-34.0); MEAN CORPUSCULAR HGB CONC 34.6 G/dL (31.0-37.0); MEAN CORPUSCULAR VOLUME 88 fL (80-100); MONOCYTES # (AUTO) 0.6 K/uL (0.1-1.0); MONOCYTES % (AUTO) 8.5 % (2.0-9.0); NEUTROPHILS % (AUTO) 84.8 % (40.0-70.0); PLATELET COUNT (AUTO) 400 K/uL (150-450); RED BLOOD CELL COUNT(AUTO) 2.15 MIL/uL (4.50-5.90); RED CELL DISTRIBUTION WIDTH 17.8 % (11.5-14.5); WHITE BLOOD COUNT (AUTO) 7.1 K/uL (4.5-11.0)
[2017-03-19 11:21] LABS: HEMOGLOBIN 6.6 g/dL (13.5-17.5)
[2017-03-19 11:41] LABS: RBC MORPHOLOGY COMMENT ABNORMAL RBC MORPH
[2017-03-19] MEDS: INSULIN ASPART 100 UNITS/ML SQ PRN ×3 (12:32→21:45)
[2017-03-19 13:28] LABS: GLUCOSE COMMENT 1 Received Meds; GLUCOSE,POINT OF CARE 187 MG/DL (70-110)
[2017-03-19] MEDS: INSULIN DETEMIR 100 UNITS/ML SQ SCH (21:00)
[2017-03-19] MEDS: PANTOPRAZOLE SODIUM 40 MG/VIAL IVP SCH (21:50)
[2017-03-20 02:17] LABS: GLUCOSE,POINT OF CARE 129 MG/DL (70-110)
[2017-03-20 02:17] LABS: GLUCOSE,POINT OF CARE 127 MG/DL (70-110)
[2017-03-20] MEDS ORDERED: SODIUM CHLORIDE 0.9% 250 ML IV ONE (03:07)
[2017-03-20] MEDS: CEFEPIME HCL 2 GM in DEXTROSE 5%-WATER 50 ML IV SCH ×2 (03:27→15:51)
[2017-03-20 04:48] VITALS: BP 106/88
[2017-03-20] MEDS: INSULIN ASPART 100 UNITS/ML SQ PRN ×4 (06:07→21:27)
[2017-03-20 06:14] LABS: CREATININE 2.44 mg/dL (0.60-1.30); POTASSIUM 4.6 mmol/L (3.5-5.1)
[2017-03-20 06:26] LABS: ALPHA-1 URINE (ELP) 11.8 %; ALPHA-2 URINE(ELP) 13.4 %; BETA URINE(ELP) 33.4 %; GAMMA URINE(ELP) 23.2 %; TOTAL PROTEIN URINE 20.9 mg/dL (Not Estab.)
[2017-03-20 06:31] LABS: HEMATOCRIT 21.8 % (41-53); HEMOGLOBIN 7.5 g/dL (13.5-17.5)
[2017-03-20] MEDS ORDERED: SODIUM CHLORIDE 0.9% 1,000 ML IV ONE (07:05)
[2017-03-20] MEDS: SODIUM CHLORIDE 0.9% 1,000 ML IV SCH (07:15)
[2017-03-20] MEDS: DILTIAZEM HCL 30 MG TABLET PO SCH ×3 (09:00→20:10)
[2017-03-20] MEDS: LISINOPRIL 10 MG TABLET PO SCH (09:00)
[2017-03-20] MEDS: BISACODYL 10 MG RECTAL RECTAL SUPPOSITORY PR SCH (09:00)
[2017-03-20] MEDS: PANTOPRAZOLE SODIUM 40 MG/VIAL IVP SCH ×2 (09:16→21:19)
[2017-03-20] MEDS: FAMOTIDINE 20 MG TABLET PO SCH ×2 (09:17→21:19)
[2017-03-20] MEDS: DOCUSATE SODIUM 100 MG CAPSULE PO SCH ×2 (09:17→21:19)
[2017-03-20] MEDS: LACTULOSE 20 GM/30 ML SOLUTION UDCUP PO SCH ×3 (09:17→21:19)
[2017-03-20] MEDS: RisperiDONE 1 MG TABLET PO SCH ×2 (09:17→21:00)
[2017-03-20] MEDS: MAGNESIUM HYDROXIDE SUSPENSION 30 ML UDCUP PO SCH (09:17)
[2017-03-20] MEDS: MULTIVITAMINS, THERAPEUTIC TABLET PO SCH (09:17)
[2017-03-20] MEDS: GABAPENTIN 400 MG CAPSULE PO SCH ×3 (09:17→21:19)
[2017-03-20] MEDS: AMIODARONE HCL 200 MG TABLET PO SCH ×2 (09:17→20:11)
[2017-03-20] MEDS: SUCRALFATE 1 GM TABLET PO SCH ×4 (09:17→21:00)
[2017-03-20] MEDS: FOLIC ACID 1 MG TABLET PO SCH (09:17)
[2017-03-20] MEDS: NICOTINE 21 MG/24 HOUR PATCH TD SCH (09:18)
[2017-03-20] MEDS: THIAMINE HCL 100 MG TABLET PO SCH (09:18)
[2017-03-20] MEDS: VANCOMYCIN HCL 1 GM/D5% WATER 200 ML IV SCH (09:19)
[2017-03-20 09:31] VITALS: BP 105/55
[2017-03-20 11:46] VITALS: BP 93/54
[2017-03-20] MEDS: TraMADol HCL 50 MG TABLET PO PRN (13:10)
[2017-03-20 15:31] VITALS: BP 92/53
[2017-03-20] MEDS: SODIUM CHLORIDE 1 GM TABLET PO SCH ×2 (15:51→21:19)
[2017-03-20 19:23] VITALS: BP 97/56
[2017-03-20 20:17] LABS: GLUCOSE COMMENT 1 Received Meds; GLUCOSE,POINT OF CARE 182 MG/DL (70-110)
[2017-03-20 20:28] LABS: GLUCOSE COMMENT 1 Received Meds; GLUCOSE,POINT OF CARE 213 MG/DL (70-110)
[2017-03-20 20:28] LABS: GLUCOSE,POINT OF CARE 125 MG/DL (70-110)
[2017-03-20] MEDS: INSULIN DETEMIR 100 UNITS/ML SQ SCH (21:00)
[2017-03-21] VITALS: BP 106/68
[2017-03-21 01:28] LABS: GLUCOSE COMMENT 1 Received Meds; GLUCOSE,POINT OF CARE 175 MG/DL (70-110)
[2017-03-21 01:31] LABS: BASOPHILS % (AUTO) 0.4 % (0.0-2.0); EOSINOPHILS % (AUTO) 0.4 % (1.0-6.0); LYMPHOCYTES # (AUTO) 0.6 K/uL (1.0-4.8); LYMPHOCYTES % (AUTO) 9.7 % (22.0-44.0); MEAN CORPUSCULAR HEMOGLOBIN 27.9 pg (26.0-34.0); MEAN CORPUSCULAR HGB CONC 33.3 G/dL (31.0-37.0); MEAN CORPUSCULAR VOLUME 84 fL (80-100); MONOCYTES # (AUTO) 0.7 K/uL (0.1-1.0); MONOCYTES % (AUTO) 12.7 % (2.0-9.0); NEUTROPHILS # (AUTO) 4.5 K/uL (1.8-7.7); NEUTROPHILS % (AUTO) 76.8 % (40.0-70.0); PLATELET COUNT (AUTO) 385 K/uL (150-450); RED BLOOD CELL COUNT(AUTO) 2.87 MIL/uL (4.50-5.90); RED CELL DISTRIBUTION WIDTH 18.1 % (11.5-14.5); WHITE BLOOD COUNT (AUTO) 5.8 K/uL (4.5-11.0)
[2017-03-21 01:35] LABS: CALCIUM, TOTAL 8.1 mg/dL (8.8-10.5); CREATININE 2.54 mg/dL (0.60-1.30); POTASSIUM 5.2 mmol/L (3.5-5.1)
[2017-03-21 01:41] LABS: ALBUMIN 1.7 g/dL (3.4-5.0); BILIRUBIN,TOTAL 0.4 mg/dL (0.1-1.0); TOTAL PROTEIN, SERUM 7.5 g/dL (6.4-8.2)
[2017-03-21 01:50] LABS: RBC MORPHOLOGY COMMENT ABNORMAL RBC MORPH
[2017-03-21 04:00] VITALS: BP 110/57
[2017-03-21] MEDS: CEFEPIME HCL 2 GM in DEXTROSE 5%-WATER 50 ML IV SCH ×2 (04:42→16:29)
[2017-03-21] MEDS: INSULIN ASPART 100 UNITS/ML SQ PRN ×3 (05:30→20:20)
[2017-03-21 06:50] LABS: CALCIUM, TOTAL 7.9 mg/dL (8.8-10.5); CREATININE 2.7 mg/dL (0.60-1.30); POTASSIUM 5.4 mmol/L (3.5-5.1)
[2017-03-21] MEDS: SODIUM CHLORIDE 0.9% 1,000 ML IV SCH (08:00)
[2017-03-21 08:15] VITALS: BP 111/70
[2017-03-21] MEDS: DILTIAZEM HCL 30 MG TABLET PO SCH ×3 (08:58→20:11)
[2017-03-21] MEDS: MAGNESIUM HYDROXIDE SUSPENSION 30 ML UDCUP PO SCH (09:00)
[2017-03-21] MEDS: AMIODARONE HCL 200 MG TABLET PO SCH ×2 (09:00→20:11)
[2017-03-21] MEDS: BISACODYL 10 MG RECTAL RECTAL SUPPOSITORY PR SCH (09:00)
[2017-03-21] MEDS: VANCOMYCIN HCL 1 GM/D5% WATER 200 ML IV SCH (09:12)
[2017-03-21] MEDS: NICOTINE 21 MG/24 HOUR PATCH TD SCH (09:22)
[2017-03-21] MEDS: SUCRALFATE 1 GM TABLET PO SCH ×4 (10:00→20:11)
[2017-03-21] MEDS: PANTOPRAZOLE SODIUM 40 MG/VIAL IVP SCH ×2 (10:00→20:11)
[2017-03-21] MEDS: LACTULOSE 20 GM/30 ML SOLUTION UDCUP PO SCH ×3 (10:01→20:10)
[2017-03-21] MEDS: FOLIC ACID 1 MG TABLET PO SCH (10:02)
[2017-03-21] MEDS: GABAPENTIN 400 MG CAPSULE PO SCH ×3 (10:02→20:11)
[2017-03-21] MEDS: SODIUM CHLORIDE 1 GM TABLET PO SCH ×3 (10:02→20:11)
[2017-03-21] MEDS: DOCUSATE SODIUM 100 MG CAPSULE PO SCH ×2 (10:02→20:11)
[2017-03-21] MEDS: MULTIVITAMINS, THERAPEUTIC TABLET PO SCH (10:02)
[2017-03-21] MEDS: FAMOTIDINE 20 MG TABLET PO SCH ×2 (10:02→20:11)
[2017-03-21] MEDS: THIAMINE HCL 100 MG TABLET PO SCH (10:02)
[2017-03-21] MEDS: RisperiDONE 1 MG TABLET PO SCH ×2 (10:02→20:11)
[2017-03-21] MEDS ORDERED: ALBUMIN HUMAN 25%-25GM/100ML 100 ML IV PRN (10:15)
[2017-03-21 11:07] VITALS: BP 100/68
[2017-03-21 15:17] VITALS: BP 108/70
[2017-03-21] MEDS: SODIUM BICARBONATE 650 MG TABLET PO SCH ×2 (16:30→20:11)
[2017-03-21 19:37] VITALS: BP 107/56
[2017-03-21] MEDS: OxyCODONE HCL/ACETAMINOPHEN 5-325 MG TABLET PO PRN (20:11)
[2017-03-21] MEDS: INSULIN DETEMIR 100 UNITS/ML SQ SCH (20:20)
[2017-03-21 20:43] LABS: GLUCOSE COMMENT 1 Received Meds; GLUCOSE,POINT OF CARE 163 MG/DL (70-110)
[2017-03-21 20:47] LABS: GLUCOSE,POINT OF CARE 156 MG/DL (70-110)
[2017-03-21 20:47] LABS: GLUCOSE,POINT OF CARE 206 MG/DL (70-110)
[2017-03-21 20:47] LABS: GLUCOSE,POINT OF CARE 91 MG/DL (70-110)
[2017-03-21] MEDS ORDERED: PROPOFOL 1% 20 ML VIAL IVP ONE (21:30)
[2017-03-21] MEDS ORDERED: GLYCOPYRROLATE 0.2 MG/ML VIAL IM ONE (21:30)
[2017-03-21] MEDS ORDERED: LIDOCAINE HCL/PF 2% 5 ML SYRINGE IVP ONE (21:30)
[2017-03-21] MEDS ORDERED: METOCLOPRAMIDE HCL 5 MG/ML 2 ML VIAL IVP ONE (21:30)
[2017-03-21] MEDS ORDERED: ONDANSETRON HCL 4 MG/2 ML VIAL IVP ONE (21:30)
[2017-03-22] VITALS (7 sets, daily range): BP systolic 98–138; BP diastolic 51–65
[2017-03-22] MEDS: CEFEPIME HCL 2 GM in DEXTROSE 5%-WATER 50 ML IV SCH ×2 (04:02→16:01)
[2017-03-22] MEDS: DEXTROSE 50%-WATER 25 GM/50 ML SYRINGE IVP PRN ×6 (05:49→23:30)
[2017-03-22 06:41] LABS: CALCIUM, TOTAL 8.4 mg/dL (8.8-10.5); CREATININE 2.63 mg/dL (0.60-1.30); MAGNESIUM 2.2 mg/dL (1.80-2.40); POTASSIUM 4.6 mmol/L (3.5-5.1)
[2017-03-22] MEDS: PANTOPRAZOLE SODIUM 40 MG/VIAL IVP SCH ×2 (07:56→20:01)
[2017-03-22] MEDS: SODIUM CHLORIDE 0.9% 1,000 ML IV SCH (07:57)
[2017-03-22] MEDS ORDERED: VANCOMYCIN HCL 750 MG in DEXTROSE 5%-WATER 150 ML IV SCH (08:00)
[2017-03-22] MEDS: AMIODARONE HCL 200 MG TABLET PO SCH ×2 (09:00→20:54)
[2017-03-22] MEDS: RisperiDONE 1 MG TABLET PO SCH ×2 (09:00→20:54)
[2017-03-22] MEDS: THIAMINE HCL 100 MG TABLET PO SCH (09:00)
[2017-03-22] MEDS: FOLIC ACID 1 MG TABLET PO SCH (09:00)
[2017-03-22] MEDS: MULTIVITAMINS, THERAPEUTIC TABLET PO SCH (09:00)
[2017-03-22] MEDS: SUCRALFATE 1 GM TABLET PO SCH ×4 (09:00→20:53)
[2017-03-22] MEDS: DOCUSATE SODIUM 100 MG CAPSULE PO SCH ×2 (09:00→20:54)
[2017-03-22] MEDS: NICOTINE 21 MG/24 HOUR PATCH TD SCH (09:00)
[2017-03-22] MEDS: DILTIAZEM HCL 30 MG TABLET PO SCH ×3 (09:00→20:53)
[2017-03-22] MEDS: SODIUM BICARBONATE 650 MG TABLET PO SCH ×3 (09:00→20:54)
[2017-03-22] MEDS: LACTULOSE 20 GM/30 ML SOLUTION UDCUP PO SCH ×3 (09:00→20:53)
[2017-03-22] MEDS: SODIUM CHLORIDE 1 GM TABLET PO SCH ×3 (09:00→20:54)
[2017-03-22] MEDS: FAMOTIDINE 20 MG TABLET PO SCH ×2 (09:00→20:54)
[2017-03-22] MEDS: BISACODYL 10 MG RECTAL RECTAL SUPPOSITORY PR SCH (09:00)
[2017-03-22] MEDS: GABAPENTIN 400 MG CAPSULE PO SCH ×3 (09:00→20:54)
[2017-03-22] MEDS ORDERED: DEXTROSE 10%-WATER 1,000 ML IV SCH (16:45)
[2017-03-22] MEDS ORDERED: LACTULOSE 200 GM/300 ML RECTAL SOLUTION PR ONE (16:45)
[2017-03-22] MEDS ORDERED: SODIUM CHLORIDE 0.9% IRRIG BTL 1,000 ML IRRIG ONE (18:54)
[2017-03-22 20:14] LABS: GLUCOSE,POINT OF CARE 114 MG/DL (70-110)
[2017-03-22 20:14] LABS: GLUCOSE COMMENT 1 Juice/Food/D50 Given; GLUCOSE,POINT OF CARE 49 MG/DL (70-110)
[2017-03-22 20:17] LABS: GLUCOSE,POINT OF CARE 96 MG/DL (70-110)
[2017-03-22 20:17] LABS: GLUCOSE,POINT OF CARE 102 MG/DL (70-110)
[2017-03-22 20:17] LABS: GLUCOSE,POINT OF CARE 110 MG/DL (70-110)
[2017-03-22 20:17] LABS: GLUCOSE COMMENT 1 Juice/Food/D50 Given; GLUCOSE COMMENT 2 Doctor Notified; GLUCOSE,POINT OF CARE 43 MG/DL (70-110)
[2017-03-22 20:17] LABS: GLUCOSE COMMENT 1 Juice/Food/D50 Given; GLUCOSE,POINT OF CARE 32 MG/DL (70-110)
[2017-03-22 20:17] LABS: GLUCOSE COMMENT 1 Doctor Notified; GLUCOSE,POINT OF CARE 52 MG/DL (70-110)
[2017-03-23] MEDS: DEXTROSE 10%-WATER 1,000 ML IV SCH ×2 (00:27→12:36)
[2017-03-23] MEDS: CEFEPIME HCL 2 GM in DEXTROSE 5%-WATER 50 ML IV SCH ×2 (03:28→16:18)
[2017-03-23 05:00] VITALS: BP 105/61
[2017-03-23 07:20] LABS: CALCIUM, TOTAL 8.6 mg/dL (8.8-10.5); CREATININE 2.5 mg/dL (0.60-1.30); POTASSIUM 4.9 mmol/L (3.5-5.1)
[2017-03-23 07:44] VITALS: BP 100/52
[2017-03-23] MEDS: DILTIAZEM HCL 30 MG TABLET PO SCH ×3 (09:00→21:10)
[2017-03-23] MEDS ORDERED: PIPERACILLIN SODIUM/TAZOBACTAM 2.25 GM in DEXTROSE 5%-WATER 50 ML IV SCH (09:45)
[2017-03-23] MEDS ORDERED: VANCOMYCIN HCL 500 MG in DEXTROSE 5%-WATER 100 ML IV ONE (11:00)
[2017-03-23] MEDS: DOCUSATE SODIUM 100 MG CAPSULE PO SCH ×2 (11:12→21:10)
[2017-03-23] MEDS: FOLIC ACID 1 MG TABLET PO SCH (11:13)
[2017-03-23] MEDS: AMIODARONE HCL 200 MG TABLET PO SCH ×2 (11:13→21:10)
[2017-03-23] MEDS: LACTULOSE 20 GM/30 ML SOLUTION UDCUP PO SCH ×3 (11:13→21:10)
[2017-03-23] MEDS: MULTIVITAMINS, THERAPEUTIC TABLET PO SCH (11:13)
[2017-03-23] MEDS: NICOTINE 21 MG/24 HOUR PATCH TD SCH (11:13)
[2017-03-23] MEDS: SODIUM BICARBONATE 650 MG TABLET PO SCH ×3 (11:14→21:11)
[2017-03-23] MEDS: SUCRALFATE 1 GM TABLET PO SCH ×4 (11:14→21:10)
[2017-03-23] MEDS: SODIUM CHLORIDE 1 GM TABLET PO SCH ×2 (11:14→21:11)
[2017-03-23] MEDS: FAMOTIDINE 20 MG TABLET PO SCH ×2 (11:15→21:10)
[2017-03-23] MEDS: THIAMINE HCL 100 MG TABLET PO SCH (11:15)
[2017-03-23] MEDS: RisperiDONE 1 MG TABLET PO SCH ×2 (11:15→21:10)
[2017-03-23] MEDS: GABAPENTIN 400 MG CAPSULE PO SCH ×3 (11:15→21:10)
[2017-03-23 11:39] VITALS: BP 111/49
[2017-03-23 12:11] LABS: BASOPHILS % (AUTO) 0.4 % (0.0-2.0); EOSINOPHILS % (AUTO) 0.3 % (1.0-6.0); HEMATOCRIT 23.5 % (41-53); HEMOGLOBIN 8.1 g/dL (13.5-17.5); LYMPHOCYTES # (AUTO) 1.1 K/uL (1.0-4.8); LYMPHOCYTES % (AUTO) 17.5 % (22.0-44.0); MEAN CORPUSCULAR HEMOGLOBIN 29.3 pg (26.0-34.0); MEAN CORPUSCULAR HGB CONC 34.4 G/dL (31.0-37.0); MEAN CORPUSCULAR VOLUME 85 fL (80-100); MONOCYTES % (AUTO) 16.5 % (2.0-9.0); NEUTROPHILS % (AUTO) 65.3 % (40.0-70.0); PLATELET COUNT (AUTO) 374 K/uL (150-450); RED BLOOD CELL COUNT(AUTO) 2.75 MIL/uL (4.50-5.90); WHITE BLOOD COUNT (AUTO) 6.1 K/uL (4.5-11.0)
[2017-03-23 12:20] LABS: CALCIUM, TOTAL 8.2 mg/dL (8.8-10.5); CREATININE 2.7 mg/dL (0.60-1.30); POTASSIUM 4.6 mmol/L (3.5-5.1)
[2017-03-23] MEDS: PANTOPRAZOLE SODIUM 40 MG/VIAL IVP SCH ×2 (12:23→21:10)
[2017-03-23] MEDS: BISACODYL 10 MG RECTAL RECTAL SUPPOSITORY PR SCH (12:23)
[2017-03-23 12:26] LABS: ALBUMIN 1.8 g/dL (3.4-5.0); BILIRUBIN,TOTAL 0.4 mg/dL (0.1-1.0); TOTAL PROTEIN, SERUM 7.6 g/dL (6.4-8.2)
[2017-03-23] MEDS: INSULIN ASPART 100 UNITS/ML SQ PRN (12:47)
[2017-03-23] MEDS: LORazepam 2 MG/ML VIAL IVP PRN (14:03)
[2017-03-23 15:35] VITALS: BP 101/64
[2017-03-23 17:36] VITALS: BP 110/80
[2017-03-23 20:01] VITALS: BP 123/100
[2017-03-23] MEDS: OxyCODONE HCL/ACETAMINOPHEN 5-325 MG TABLET PO PRN (21:13)
[2017-03-24] VITALS (7 sets, daily range): BP systolic 94–132; BP diastolic 46–73
[2017-03-24] MEDS: DEXTROSE 10%-WATER 1,000 ML IV SCH ×2 (04:01→16:30)
[2017-03-24] MEDS: CEFEPIME HCL 2 GM in DEXTROSE 5%-WATER 50 ML IV SCH ×2 (04:01→18:07)
[2017-03-24 05:56] LABS: BASOPHILS % (AUTO) 0.5 % (0.0-2.0); EOSINOPHILS % (AUTO) 0.8 % (1.0-6.0); HEMATOCRIT 22.6 % (41-53); HEMOGLOBIN 7.8 g/dL (13.5-17.5); LYMPHOCYTES # (AUTO) 1.4 K/uL (1.0-4.8); LYMPHOCYTES % (AUTO) 24.2 % (22.0-44.0); MEAN CORPUSCULAR HEMOGLOBIN 30.8 pg (26.0-34.0); MEAN CORPUSCULAR HGB CONC 34.6 G/dL (31.0-37.0); MEAN CORPUSCULAR VOLUME 89 fL (80-100); MONOCYTES # (AUTO) 0.9 K/uL (0.1-1.0); MONOCYTES % (AUTO) 15.5 % (2.0-9.0); NEUTROPHILS # (AUTO) 3.3 K/uL (1.8-7.7); PLATELET COUNT (AUTO) 359 K/uL (150-450); RED BLOOD CELL COUNT(AUTO) 2.54 MIL/uL (4.50-5.90); RED CELL DISTRIBUTION WIDTH 17.9 % (11.5-14.5); WHITE BLOOD COUNT (AUTO) 5.7 K/uL (4.5-11.0)
[2017-03-24 06:12] LABS: CALCIUM, TOTAL 8.3 mg/dL (8.8-10.5); CREATININE 2.42 mg/dL (0.60-1.30); POTASSIUM 4.6 mmol/L (3.5-5.1)
[2017-03-24] MEDS ORDERED: VANCOMYCIN HCL 500 MG in DEXTROSE 5%-WATER 100 ML IV SCH (08:00)
[2017-03-24] MEDS: SODIUM BICARBONATE 100 MEQ in SODIUM CHLORIDE 0.45% 1,000 ML IV SCH (09:33)
[2017-03-24] MEDS: PANTOPRAZOLE SODIUM 40 MG/VIAL IVP SCH ×2 (09:34→21:01)
[2017-03-24] MEDS: NICOTINE 21 MG/24 HOUR PATCH TD SCH (09:34)
[2017-03-24] MEDS: DILTIAZEM HCL 30 MG TABLET PO SCH ×3 (09:34→21:00)
[2017-03-24] MEDS: LACTULOSE 20 GM/30 ML SOLUTION UDCUP PO SCH ×4 (09:35→21:02)
[2017-03-24] MEDS: DOCUSATE SODIUM 100 MG CAPSULE PO SCH ×2 (09:35→21:01)
[2017-03-24] MEDS: GABAPENTIN 400 MG CAPSULE PO SCH ×3 (09:36→21:01)
[2017-03-24] MEDS: RisperiDONE 1 MG TABLET PO SCH ×2 (09:37→21:00)
[2017-03-24] MEDS: FAMOTIDINE 20 MG TABLET PO SCH ×2 (09:37→21:01)
[2017-03-24] MEDS: AMIODARONE HCL 200 MG TABLET PO SCH ×2 (09:37→21:01)
[2017-03-24] MEDS: MULTIVITAMINS, THERAPEUTIC TABLET PO SCH (09:38)
[2017-03-24] MEDS: SODIUM BICARBONATE 650 MG TABLET PO SCH ×3 (09:38→21:01)
[2017-03-24] MEDS: SUCRALFATE 1 GM TABLET PO SCH ×4 (09:38→21:01)
[2017-03-24] MEDS: BISACODYL 10 MG RECTAL RECTAL SUPPOSITORY PR SCH (09:39)
[2017-03-24] MEDS: FOLIC ACID 1 MG TABLET PO SCH (09:39)
[2017-03-24] MEDS: THIAMINE HCL 100 MG TABLET PO SCH (09:39)
[2017-03-24] MEDS: SODIUM CHLORIDE 1 GM TABLET PO SCH ×2 (09:40→21:07)
[2017-03-24 16:38] LABS: INR 1.4 (0.9-1.1); PROTHROMBIN TIME 14.4 SEC (9.4-11.6)
[2017-03-24 16:43] LABS: GLUCOSE COMMENT 1 Juice/Food/D50 Given; GLUCOSE,POINT OF CARE 38 MG/DL (70-110)
[2017-03-24 16:43] LABS: GLUCOSE,POINT OF CARE 93 MG/DL (70-110)
[2017-03-24 16:47] LABS: GLUCOSE,POINT OF CARE 118 MG/DL (70-110)
[2017-03-24 16:47] LABS: GLUCOSE COMMENT 1 Juice/Food/D50 Given; GLUCOSE,POINT OF CARE 61 MG/DL (70-110)
[2017-03-24 16:47] LABS: GLUCOSE,POINT OF CARE 114 MG/DL (70-110)
[2017-03-24 17:08] LABS: ALBUMIN 1.6 g/dL (3.4-5.0); BILIRUBIN,TOTAL 0.4 mg/dL (0.1-1.0); TOTAL PROTEIN, SERUM 7.5 g/dL (6.4-8.2)
[2017-03-24 17:15] LABS: BILIRUBIN,DIRECT 0.2 mg/dL (0.00-0.20)
[2017-03-24 21:27] LABS: GLUCOSE COMMENT 1 Received Meds; GLUCOSE,POINT OF CARE 188 MG/DL (70-110)
[2017-03-24 21:28] LABS: GLUCOSE,POINT OF CARE 101 MG/DL (70-110)
[2017-03-25] MEDS: SODIUM BICARBONATE 100 MEQ in SODIUM CHLORIDE 0.45% 1,000 ML IV SCH (00:09)
[2017-03-25 03:31] VITALS: BP 108/64
[2017-03-25] MEDS: CEFEPIME HCL 2 GM in DEXTROSE 5%-WATER 50 ML IV SCH ×2 (05:18→16:10)
[2017-03-25 05:28] LABS: GLUCOSE,POINT OF CARE 172 MG/DL (70-110)
[2017-03-25 05:28] LABS: GLUCOSE,POINT OF CARE 130 MG/DL (70-110)
[2017-03-25 06:31] LABS: BASOPHILS % (AUTO) 0.3 % (0.0-2.0); EOSINOPHILS % (AUTO) 0.3 % (1.0-6.0); HEMATOCRIT 24.5 % (41-53); HEMOGLOBIN 8.5 g/dL (13.5-17.5); LYMPHOCYTES # (AUTO) 1.6 K/uL (1.0-4.8); MEAN CORPUSCULAR HEMOGLOBIN 30.7 pg (26.0-34.0); MEAN CORPUSCULAR HGB CONC 34.5 G/dL (31.0-37.0); MEAN CORPUSCULAR VOLUME 89 fL (80-100); MONOCYTES # (AUTO) 1.3 K/uL (0.1-1.0); MONOCYTES % (AUTO) 15.6 % (2.0-9.0); NEUTROPHILS # (AUTO) 5.6 K/uL (1.8-7.7); NEUTROPHILS % (AUTO) 64.8 % (40.0-70.0); PLATELET COUNT (AUTO) 385 K/uL (150-450); RED BLOOD CELL COUNT(AUTO) 2.76 MIL/uL (4.50-5.90); WHITE BLOOD COUNT (AUTO) 8.6 K/uL (4.5-11.0)
[2017-03-25 06:58] LABS: ALBUMIN 1.7 g/dL (3.4-5.0); BILIRUBIN,TOTAL 0.4 mg/dL (0.1-1.0); CALCIUM, TOTAL 8.5 mg/dL (8.8-10.5); CREATININE 2.53 mg/dL (0.60-1.30); TOTAL PROTEIN, SERUM 7.5 g/dL (6.4-8.2)
[2017-03-25 07:18] LABS: GLUCOSE COMMENT 1 Received Meds; GLUCOSE,POINT OF CARE 166 MG/DL (70-110)
[2017-03-25 07:29] VITALS: BP 91/44
[2017-03-25] MEDS ORDERED: VANCOMYCIN HCL 1 GM/D5% WATER 200 ML IV PRN (08:30)
[2017-03-25] MEDS: SUCRALFATE 1 GM TABLET PO SCH ×4 (08:48→21:28)
[2017-03-25] MEDS: DILTIAZEM HCL 30 MG TABLET PO SCH ×3 (08:48→21:00)
[2017-03-25] MEDS: PANTOPRAZOLE SODIUM 40 MG/VIAL IVP SCH ×2 (08:48→21:25)
[2017-03-25] MEDS: DOCUSATE SODIUM 100 MG CAPSULE PO SCH ×2 (08:49→21:28)
[2017-03-25] MEDS: MULTIVITAMINS, THERAPEUTIC TABLET PO SCH (08:49)
[2017-03-25] MEDS: FOLIC ACID 1 MG TABLET PO SCH (08:49)
[2017-03-25] MEDS: LACTULOSE 20 GM/30 ML SOLUTION UDCUP PO SCH ×4 (08:49→21:28)
[2017-03-25] MEDS: AMIODARONE HCL 200 MG TABLET PO SCH ×2 (08:49→21:28)
[2017-03-25] MEDS: SODIUM CHLORIDE 1 GM TABLET PO SCH ×2 (08:50→21:28)
[2017-03-25] MEDS: SODIUM BICARBONATE 650 MG TABLET PO SCH ×3 (08:50→21:29)
[2017-03-25] MEDS: BISACODYL 10 MG RECTAL RECTAL SUPPOSITORY PR SCH (08:51)
[2017-03-25] MEDS: RisperiDONE 1 MG TABLET PO SCH ×2 (08:51→21:00)
[2017-03-25] MEDS: NICOTINE 21 MG/24 HOUR PATCH TD SCH (08:51)
[2017-03-25] MEDS: GABAPENTIN 400 MG CAPSULE PO SCH ×3 (08:52→21:28)
[2017-03-25] MEDS: FAMOTIDINE 20 MG TABLET PO SCH ×2 (08:52→21:28)
[2017-03-25] MEDS: THIAMINE HCL 100 MG TABLET PO SCH (08:53)
[2017-03-25] MEDS ORDERED: EPOETIN ALFA 10,000 UNITS/ML 2 ML VIAL SQ SCH (09:00)
[2017-03-25 09:51] VITALS: BP 125/62
[2017-03-25 10:03] LABS: RBC MORPHOLOGY COMMENT ABNORMAL RBC MORPH
[2017-03-25] MEDS: LORazepam 2 MG/ML VIAL IVP PRN ×2 (10:11→16:18)
[2017-03-25] MEDS ORDERED: MEBROFENIN TC99M/MCL ISOTOPE 1 EA INJ INJ ONE (10:40)
[2017-03-25] MEDS: SODIUM BICARBONATE 75 MEQ in DEXTROSE 5%-0.45% SODIUM CHL 1,000 ML IV SCH ×2 (11:43→21:28)
[2017-03-25 12:29] LABS: BILIRUBIN,TOTAL 0.4 mg/dL (0.1-1.0)
[2017-03-25 12:32] LABS: BILIRUBIN,DIRECT 0.2 mg/dL (0.00-0.20)
[2017-03-25 15:47] VITALS: BP 132/76
[2017-03-25 19:27] VITALS: BP 133/86
[2017-03-25] MEDS: INSULIN ASPART 100 UNITS/ML SQ PRN (21:31)
[2017-03-25 23:12] VITALS: BP 101/53
[2017-03-25 23:27] LABS: APPEARANCE,URINE CLEAR (CLEAR); GLUCOSE, URINE (UA) NEGATIVE (NEGATIVE); KETONES,URINE NEGATIVE (NEGATIVE); LEUKOCYTE ESTERASE ,URINE TRACE (NEGATIVE); OCCULT BLOOD,URINE LARGE (NEGATIVE); PROTEIN,URINE SEE CONFIRM (NEGATIVE)
[2017-03-25 23:29] LABS: ADD UA MICROSCOPIC YES
[2017-03-26 00:09] LABS: SQUAMOUS EPITHELIAL CELL,UR Rare /LPF (None Seen); SULFOSALICYLIC ACID,URINE 1+ (Negative)
[2017-03-26] MEDS: CEFEPIME HCL 2 GM in DEXTROSE 5%-WATER 50 ML IV SCH ×2 (04:07→15:15)
[2017-03-26 04:20] VITALS: BP 108/50
[2017-03-26] MEDS: INSULIN ASPART 100 UNITS/ML SQ PRN ×3 (06:06→21:41)
[2017-03-26] MEDS: SODIUM BICARBONATE 75 MEQ in DEXTROSE 5%-0.45% SODIUM CHL 1,000 ML IV SCH ×2 (06:30→18:20)
[2017-03-26 07:13] VITALS: BP 97/54
[2017-03-26 07:33] LABS: BILIRUBIN,TOTAL 0.4 mg/dL (0.1-1.0); CALCIUM, TOTAL 8.2 mg/dL (8.8-10.5); CREATININE 2.49 mg/dL (0.60-1.30); POTASSIUM 3.3 mmol/L (3.5-5.1)
[2017-03-26 07:37] LABS: BILIRUBIN,DIRECT 0.2 mg/dL (0.00-0.20)
[2017-03-26] MEDS: BISACODYL 10 MG RECTAL RECTAL SUPPOSITORY PR SCH (09:00)
[2017-03-26] MEDS: AMIODARONE HCL 200 MG TABLET PO SCH ×2 (09:00→21:49)
[2017-03-26] MEDS: DILTIAZEM HCL 30 MG TABLET PO SCH ×3 (09:00→21:00)
[2017-03-26] MEDS: PANTOPRAZOLE SODIUM 40 MG/VIAL IVP SCH ×2 (09:08→21:49)
[2017-03-26] MEDS: FOLIC ACID 1 MG TABLET PO SCH (09:09)
[2017-03-26] MEDS: LACTULOSE 20 GM/30 ML SOLUTION UDCUP PO SCH ×4 (09:09→21:49)
[2017-03-26] MEDS: SUCRALFATE 1 GM TABLET PO SCH ×4 (09:09→21:49)
[2017-03-26] MEDS: DOCUSATE SODIUM 100 MG CAPSULE PO SCH ×2 (09:09→21:49)
[2017-03-26] MEDS: NICOTINE 21 MG/24 HOUR PATCH TD SCH (09:10)
[2017-03-26] MEDS: SODIUM BICARBONATE 650 MG TABLET PO SCH (09:10)
[2017-03-26] MEDS: THIAMINE HCL 100 MG TABLET PO SCH (09:10)
[2017-03-26] MEDS: GABAPENTIN 400 MG CAPSULE PO SCH ×3 (09:11→21:49)
[2017-03-26] MEDS: SODIUM CHLORIDE 1 GM TABLET PO SCH (09:11)
[2017-03-26] MEDS: RisperiDONE 1 MG TABLET PO SCH ×2 (09:12→21:00)
[2017-03-26] MEDS: FAMOTIDINE 20 MG TABLET PO SCH ×2 (09:12→21:49)
[2017-03-26] MEDS: MULTIVITAMINS, THERAPEUTIC TABLET PO SCH (09:17)
[2017-03-26 09:59] LABS: GLUCOSE,POINT OF CARE 223 MG/DL (70-110)
[2017-03-26 10:04] LABS: GLUCOSE COMMENT 1 Received Meds; GLUCOSE,POINT OF CARE 185 MG/DL (70-110)
[2017-03-26 10:04] LABS: GLUCOSE,POINT OF CARE 169 MG/DL (70-110)
[2017-03-26 10:10] LABS: GLUCOSE COMMENT 1 Received Meds; GLUCOSE,POINT OF CARE 202 MG/DL (70-110)
[2017-03-26 11:23] VITALS: BP 121/52
[2017-03-26] MEDS ORDERED: POTASSIUM CHLORIDE 20 MEQ ER TABLET PO ONE (12:45)
[2017-03-26] MEDS: LORazepam 2 MG/ML VIAL IVP PRN (15:17)
[2017-03-26 15:48] VITALS: BP 102/54
[2017-03-26 19:23] VITALS: BP 102/80
[2017-03-27] VITALS: BP 110/53
[2017-03-27 00:38] LABS: GLUCOSE,POINT OF CARE 103 MG/DL (70-110)
[2017-03-27 00:38] LABS: GLUCOSE,POINT OF CARE 161 MG/DL (70-110)
[2017-03-27 01:02] LABS: GLUCOSE COMMENT 1 Received Meds; GLUCOSE,POINT OF CARE 213 MG/DL (70-110)
[2017-03-27] MEDS: CEFEPIME HCL 2 GM in DEXTROSE 5%-WATER 50 ML IV SCH ×2 (04:22→16:34)
[2017-03-27] MEDS: SODIUM BICARBONATE 75 MEQ in DEXTROSE 5%-0.45% SODIUM CHL 1,000 ML IV SCH (04:22)
[2017-03-27 04:44] VITALS: BP 115/69
[2017-03-27] MEDS: INSULIN ASPART 100 UNITS/ML SQ PRN ×4 (05:42→21:27)
[2017-03-27 07:05] VITALS: BP 126/79
[2017-03-27 07:20] LABS: BASOPHILS % (AUTO) 0.2 % (0.0-2.0); EOSINOPHILS % (AUTO) 0.3 % (1.0-6.0); HEMATOCRIT 26.2 % (41-53); HEMOGLOBIN 8.6 g/dL (13.5-17.5); LYMPHOCYTES # (AUTO) 1.2 K/uL (1.0-4.8); MEAN CORPUSCULAR HEMOGLOBIN 28.1 pg (26.0-34.0); MEAN CORPUSCULAR VOLUME 85 fL (80-100); MONOCYTES # (AUTO) 1.3 K/uL (0.1-1.0); MONOCYTES % (AUTO) 12.5 % (2.0-9.0); NEUTROPHILS # (AUTO) 8.2 K/uL (1.8-7.7); PLATELET COUNT (AUTO) 348 K/uL (150-450); RED BLOOD CELL COUNT(AUTO) 3.07 MIL/uL (4.50-5.90); WHITE BLOOD COUNT (AUTO) 10.7 K/uL (4.5-11.0)
[2017-03-27 07:23] LABS: RBC MORPHOLOGY COMMENT ABNORMAL RBC MORPH
[2017-03-27 07:39] LABS: CREATININE 2.68 mg/dL (0.60-1.30); POTASSIUM 3.7 mmol/L (3.5-5.1)
[2017-03-27 07:40] LABS: ALBUMIN 1.6 g/dL (3.4-5.0); BILIRUBIN,TOTAL 0.3 mg/dL (0.1-1.0); CALCIUM, TOTAL 8.3 mg/dL (8.8-10.5); TOTAL PROTEIN, SERUM 7.2 g/dL (6.4-8.2)
[2017-03-27] MEDS ORDERED: VANCOMYCIN HCL 750 MG in DEXTROSE 5%-WATER 150 ML IV ONE (09:00)
[2017-03-27] MEDS: BISACODYL 10 MG RECTAL RECTAL SUPPOSITORY PR SCH (09:00)
[2017-03-27 09:24] LABS: GLUCOSE COMMENT 1 Received Meds; GLUCOSE,POINT OF CARE 248 MG/DL (70-110)
[2017-03-27] MEDS: DILTIAZEM HCL 30 MG TABLET PO SCH ×3 (10:28→20:37)
[2017-03-27] MEDS: SUCRALFATE 1 GM TABLET PO SCH ×4 (10:28→20:38)
[2017-03-27] MEDS: PANTOPRAZOLE SODIUM 40 MG/VIAL IVP SCH ×2 (10:28→20:37)
[2017-03-27] MEDS: LACTULOSE 20 GM/30 ML SOLUTION UDCUP PO SCH ×4 (10:29→20:38)
[2017-03-27] MEDS: DOCUSATE SODIUM 100 MG CAPSULE PO SCH ×2 (10:30→20:38)
[2017-03-27] MEDS: THIAMINE HCL 100 MG TABLET PO SCH (10:31)
[2017-03-27] MEDS: RisperiDONE 1 MG TABLET PO SCH (10:31)
[2017-03-27] MEDS: AMIODARONE HCL 200 MG TABLET PO SCH ×2 (10:31→21:23)
[2017-03-27] MEDS: GABAPENTIN 400 MG CAPSULE PO SCH (10:31)
[2017-03-27] MEDS: NICOTINE 21 MG/24 HOUR PATCH TD SCH (10:31)
[2017-03-27] MEDS: MULTIVITAMINS, THERAPEUTIC TABLET PO SCH (10:31)
[2017-03-27] MEDS: FOLIC ACID 1 MG TABLET PO SCH (10:31)
[2017-03-27] MEDS: FAMOTIDINE 20 MG TABLET PO SCH ×2 (10:31→21:23)
[2017-03-27 11:30] VITALS: BP 117/72
[2017-03-27] MEDS ORDERED: DEXTROSE 5%-WATER 1,000 ML IV ONE (14:00)
[2017-03-27 15:34] VITALS: BP 107/60
[2017-03-27] MEDS: RIFAXIMIN 550 MG TABLET PO SCH ×2 (16:35→21:23)
[2017-03-27 19:53] VITALS: BP 113/58
[2017-03-28] VITALS (14 sets, daily range): BP systolic 81–114; BP diastolic 41–62
[2017-03-28] MEDS: CEFEPIME HCL 2 GM in DEXTROSE 5%-WATER 50 ML IV SCH ×2 (04:49→16:46)
[2017-03-28 06:13] LABS: HEMATOCRIT 22.9 % (41-53); HEMOGLOBIN 7.7 g/dL (13.5-17.5); MEAN CORPUSCULAR HEMOGLOBIN 30.7 pg (26.0-34.0); MEAN CORPUSCULAR HGB CONC 33.8 G/dL (31.0-37.0); MEAN CORPUSCULAR VOLUME 91 fL (80-100); PLATELET COUNT (AUTO) 298 K/uL (150-450); RED BLOOD CELL COUNT(AUTO) 2.51 MIL/uL (4.50-5.90); RED CELL DISTRIBUTION WIDTH 18.5 % (11.5-14.5); WHITE BLOOD COUNT (AUTO) 11.1 K/uL (4.5-11.0)
[2017-03-28 07:08] LABS: ALBUMIN 1.5 g/dL (3.4-5.0); BILIRUBIN,TOTAL 0.5 mg/dL (0.1-1.0); CALCIUM, TOTAL 7.9 mg/dL (8.8-10.5); CREATININE 2.71 mg/dL (0.60-1.30); POTASSIUM 3.6 mmol/L (3.5-5.1); TOTAL PROTEIN, SERUM 6.8 g/dL (6.4-8.2)
[2017-03-28 07:44] LABS: BAND NEUTROPHILS % (MANUAL) 18 % (1-5); LYMPHOCYTES % (MANUAL) 12 % (22-44); RBC MORPHOLOGY COMMENT ABNORMAL RBC MORPH; TOTAL CELLS COUNTED 100
[2017-03-28] MEDS: PANTOPRAZOLE SODIUM 40 MG/VIAL IVP SCH ×2 (08:46→20:08)
[2017-03-28] MEDS: SUCRALFATE 1 GM TABLET PO SCH ×4 (08:46→20:07)
[2017-03-28] MEDS: TraMADol HCL 50 MG TABLET PO PRN ×2 (08:47→19:02)
[2017-03-28] MEDS: AMIODARONE HCL 200 MG TABLET PO SCH ×2 (08:47→20:08)
[2017-03-28] MEDS: MULTIVITAMINS, THERAPEUTIC TABLET PO SCH (08:47)
[2017-03-28] MEDS: RIFAXIMIN 550 MG TABLET PO SCH ×3 (08:47→20:08)
[2017-03-28] MEDS: FOLIC ACID 1 MG TABLET PO SCH (08:47)
[2017-03-28] MEDS: LACTULOSE 20 GM/30 ML SOLUTION UDCUP PO SCH ×4 (08:47→20:08)
[2017-03-28] MEDS: THIAMINE HCL 100 MG TABLET PO SCH (08:47)
[2017-03-28] MEDS: DOCUSATE SODIUM 100 MG CAPSULE PO SCH ×2 (08:47→20:08)
[2017-03-28] MEDS: NICOTINE 21 MG/24 HOUR PATCH TD SCH (08:48)
[2017-03-28] MEDS: FAMOTIDINE 20 MG TABLET PO SCH ×2 (08:48→20:08)
[2017-03-28] MEDS: BISACODYL 10 MG RECTAL RECTAL SUPPOSITORY PR SCH (08:48)
[2017-03-28] MEDS: DILTIAZEM HCL 30 MG TABLET PO SCH ×3 (08:52→20:09)
[2017-03-28 08:59] LABS: GLUCOSE COMMENT 1 Received Meds; GLUCOSE,POINT OF CARE 324 MG/DL (70-110)
[2017-03-28 08:59] LABS: GLUCOSE,POINT OF CARE 261 MG/DL (70-110)
[2017-03-28 09:00] LABS: GLUCOSE COMMENT 1 Received Meds; GLUCOSE,POINT OF CARE 253 MG/DL (70-110)
[2017-03-28 11:33] LABS: GLUCOSE,POINT OF CARE 102 MG/DL (70-110)
[2017-03-28] MEDS: INSULIN ASPART 100 UNITS/ML SQ PRN ×3 (12:18→21:18)
[2017-03-28] MEDS ORDERED: SODIUM CHLORIDE 0.9% 250 ML IV ONE ×2 (13:46→16:19)
[2017-03-28 19:22] LABS: GLUCOSE,POINT OF CARE 280 MG/DL (70-110)
[2017-03-28 21:07] LABS: GLUCOSE COMMENT 1 Received Meds; GLUCOSE,POINT OF CARE 317 MG/DL (70-110)
[2017-03-29] VITALS (7 sets, daily range): BP systolic 95–145; BP diastolic 40–62
[2017-03-29] MEDS: CEFEPIME HCL 2 GM in DEXTROSE 5%-WATER 50 ML IV SCH ×2 (03:46→16:36)
[2017-03-29 06:06] LABS: BASOPHILS % (AUTO) 0.3 % (0.0-2.0); EOSINOPHILS % (AUTO) 1.3 % (1.0-6.0); HEMATOCRIT 24.2 % (41-53); HEMOGLOBIN 8.2 g/dL (13.5-17.5); LYMPHOCYTES # (AUTO) 0.7 K/uL (1.0-4.8); LYMPHOCYTES % (AUTO) 6.6 % (22.0-44.0); MEAN CORPUSCULAR HEMOGLOBIN 31.1 pg (26.0-34.0); MEAN CORPUSCULAR HGB CONC 33.8 G/dL (31.0-37.0); MEAN CORPUSCULAR VOLUME 92 fL (80-100); MONOCYTES # (AUTO) 0.8 K/uL (0.1-1.0); MONOCYTES % (AUTO) 7.1 % (2.0-9.0); NEUTROPHILS # (AUTO) 9.4 K/uL (1.8-7.7); NEUTROPHILS % (AUTO) 84.7 % (40.0-70.0); PLATELET COUNT (AUTO) 263 K/uL (150-450); RED BLOOD CELL COUNT(AUTO) 2.64 MIL/uL (4.50-5.90); RED CELL DISTRIBUTION WIDTH 17.9 % (11.5-14.5)
[2017-03-29 06:20] LABS: ALBUMIN 1.4 g/dL (3.4-5.0); BILIRUBIN,TOTAL 0.4 mg/dL (0.1-1.0); CALCIUM, TOTAL 7.7 mg/dL (8.8-10.5); CREATININE 3.3 mg/dL (0.60-1.30); POTASSIUM 3.8 mmol/L (3.5-5.1); TOTAL PROTEIN, SERUM 6.6 g/dL (6.4-8.2)
[2017-03-29] MEDS: INSULIN ASPART 100 UNITS/ML SQ PRN ×4 (06:22→20:56)
[2017-03-29 07:15] LABS: RBC MORPHOLOGY COMMENT ABNORMAL RBC MORPH
[2017-03-29] MEDS: LACTULOSE 20 GM/30 ML SOLUTION UDCUP PO SCH ×4 (07:49→20:52)
[2017-03-29] MEDS: PANTOPRAZOLE SODIUM 40 MG/VIAL IVP SCH ×2 (07:49→20:52)
[2017-03-29] MEDS: DOCUSATE SODIUM 100 MG CAPSULE PO SCH ×2 (07:49→20:52)
[2017-03-29] MEDS: SUCRALFATE 1 GM TABLET PO SCH ×4 (07:49→20:52)
[2017-03-29] MEDS: MULTIVITAMINS, THERAPEUTIC TABLET PO SCH (07:49)
[2017-03-29] MEDS: FOLIC ACID 1 MG TABLET PO SCH (07:49)
[2017-03-29] MEDS: FAMOTIDINE 20 MG TABLET PO SCH ×2 (07:50→20:52)
[2017-03-29] MEDS: DILTIAZEM HCL 30 MG TABLET PO SCH ×3 (07:50→20:53)
[2017-03-29] MEDS: NICOTINE 21 MG/24 HOUR PATCH TD SCH (07:50)
[2017-03-29] MEDS: BISACODYL 10 MG RECTAL RECTAL SUPPOSITORY PR SCH (07:50)
[2017-03-29] MEDS: THIAMINE HCL 100 MG TABLET PO SCH (07:50)
[2017-03-29] MEDS: RIFAXIMIN 550 MG TABLET PO SCH ×3 (07:50→20:51)
[2017-03-29] MEDS: AMIODARONE HCL 200 MG TABLET PO SCH ×2 (09:00→20:51)
[2017-03-29] MEDS: ALBUMIN HUMAN 25%-25GM/100ML 100 ML IV SCH ×2 (09:51→20:54)
[2017-03-29] MEDS: VANCOMYCIN HCL 750 MG in DEXTROSE 5%-WATER 150 ML IV SCH (09:51)
[2017-03-29] MEDS ORDERED: SODIUM CHLORIDE 0.9% 250 ML IV ONE (10:01)
[2017-03-29 19:33] LABS: GLUCOSE,POINT OF CARE 261 MG/DL (70-110)
[2017-03-29 19:38] LABS: GLUCOSE COMMENT 1 Received Meds; GLUCOSE,POINT OF CARE 202 MG/DL (70-110)
[2017-03-29 19:38] LABS: GLUCOSE COMMENT 1 Received Meds; GLUCOSE,POINT OF CARE 183 MG/DL (70-110)
[2017-03-29 19:38] LABS: GLUCOSE,POINT OF CARE 142 MG/DL (70-110)
[2017-03-29 19:53] LABS: GLUCOSE COMMENT 1 Received Meds; GLUCOSE,POINT OF CARE 200 MG/DL (70-110)
[2017-03-29 19:57] LABS: GLUCOSE,POINT OF CARE 157 MG/DL (70-110)
[2017-03-29 19:58] LABS: GLUCOSE,POINT OF CARE 173 MG/DL (70-110)
[2017-03-29 19:58] LABS: GLUCOSE COMMENT 1 Received Meds; GLUCOSE,POINT OF CARE 189 MG/DL (70-110)
[2017-03-30] VITALS (7 sets, daily range): BP systolic 91–111; BP diastolic 50–62
[2017-03-30] MEDS: CEFEPIME HCL 2 GM in DEXTROSE 5%-WATER 50 ML IV SCH ×2 (04:32→17:15)
[2017-03-30 06:40] LABS: BILIRUBIN,TOTAL 1.6 mg/dL (0.1-1.0); CREATININE 3.33 mg/dL (0.60-1.30); TOTAL PROTEIN, SERUM 7.3 g/dL (6.4-8.2)
[2017-03-30 07:25] LABS: BASOPHILS % (AUTO) 0.4 % (0.0-2.0); HEMATOCRIT 24.8 % (41-53); HEMOGLOBIN 8.1 g/dL (13.5-17.5); LYMPHOCYTES # (AUTO) 0.8 K/uL (1.0-4.8); LYMPHOCYTES % (AUTO) 8.8 % (22.0-44.0); MEAN CORPUSCULAR HEMOGLOBIN 28.3 pg (26.0-34.0); MEAN CORPUSCULAR HGB CONC 32.8 G/dL (31.0-37.0); MEAN CORPUSCULAR VOLUME 86 fL (80-100); MONOCYTES # (AUTO) 0.5 K/uL (0.1-1.0); MONOCYTES % (AUTO) 5.5 % (2.0-9.0); NEUTROPHILS % (AUTO) 84.3 % (40.0-70.0); PLATELET COUNT (AUTO) 277 K/uL (150-450); RED BLOOD CELL COUNT(AUTO) 2.87 MIL/uL (4.50-5.90); RED CELL DISTRIBUTION WIDTH 18.2 % (11.5-14.5); WHITE BLOOD COUNT (AUTO) 9.5 K/uL (4.5-11.0)
[2017-03-30 08:17] LABS: GLUCOSE,POINT OF CARE 78 MG/DL (70-110)
[2017-03-30 08:17] LABS: GLUCOSE COMMENT 1 Received Meds; GLUCOSE,POINT OF CARE 133 MG/DL (70-110)
[2017-03-30] MEDS: ALBUMIN HUMAN 25%-25GM/100ML 100 ML IV SCH ×2 (08:35→20:07)
[2017-03-30] MEDS: LACTULOSE 20 GM/30 ML SOLUTION UDCUP PO SCH ×4 (08:36→20:09)
[2017-03-30] MEDS: PANTOPRAZOLE SODIUM 40 MG/VIAL IVP SCH ×2 (08:36→20:08)
[2017-03-30] MEDS: DOCUSATE SODIUM 100 MG CAPSULE PO SCH ×2 (08:40→20:08)
[2017-03-30] MEDS: DILTIAZEM HCL 30 MG TABLET PO SCH ×3 (08:40→20:12)
[2017-03-30] MEDS: SUCRALFATE 1 GM TABLET PO SCH ×4 (08:40→20:09)
[2017-03-30] MEDS: THIAMINE HCL 100 MG TABLET PO SCH (08:41)
[2017-03-30] MEDS: FOLIC ACID 1 MG TABLET PO SCH (08:41)
[2017-03-30] MEDS: FAMOTIDINE 20 MG TABLET PO SCH ×2 (08:41→20:08)
[2017-03-30] MEDS: AMIODARONE HCL 200 MG TABLET PO SCH ×2 (08:41→20:08)
[2017-03-30] MEDS: MULTIVITAMINS, THERAPEUTIC TABLET PO SCH (08:42)
[2017-03-30] MEDS: BISACODYL 10 MG RECTAL RECTAL SUPPOSITORY PR SCH (08:42)
[2017-03-30] MEDS: RIFAXIMIN 550 MG TABLET PO SCH ×3 (08:42→20:08)
[2017-03-30] MEDS: NICOTINE 21 MG/24 HOUR PATCH TD SCH (08:42)
[2017-03-30 09:12] LABS: RBC MORPHOLOGY COMMENT ABNORMAL RBC MORPH
[2017-03-30] MEDS: INSULIN ASPART 100 UNITS/ML SQ PRN ×3 (12:06→20:19)
[2017-03-30 14:22] LABS: GLUCOSE COMMENT 1 Received Meds; GLUCOSE,POINT OF CARE 225 MG/DL (70-110)
[2017-03-30 14:31] LABS: APPEARANCE,URINE CLOUDY (CLEAR); GLUCOSE, URINE (UA) NEGATIVE (NEGATIVE); KETONES,URINE NEGATIVE (NEGATIVE); LEUKOCYTE ESTERASE ,URINE MODERATE (NEGATIVE); OCCULT BLOOD,URINE LARGE (NEGATIVE); PH,URINE 6.5 (5.0-8.0); PROTEIN,URINE SEE CONFIRM (NEGATIVE)
[2017-03-30 14:38] LABS: ADD UA MICROSCOPIC YES
[2017-03-30 14:44] LABS: SQUAMOUS EPITHELIAL CELL,UR Rare /LPF (None Seen); SULFOSALICYLIC ACID,URINE 3+ (Negative); WBC,URINE 51-100 /HPF (0-5)
[2017-03-30 22:38] LABS: GLUCOSE COMMENT 1 Received Meds; GLUCOSE,POINT OF CARE 243 MG/DL (70-110)
[2017-03-30 22:38] LABS: GLUCOSE,POINT OF CARE 189 MG/DL (70-110)
[2017-03-31 04:00] VITALS: BP 115/63
[2017-03-31] MEDS: CEFEPIME HCL 2 GM in DEXTROSE 5%-WATER 50 ML IV SCH ×2 (04:14→17:01)
[2017-03-31 06:23] LABS: ALBUMIN 2.1 g/dL (3.4-5.0); BILIRUBIN,TOTAL 1.5 mg/dL (0.1-1.0); CALCIUM, TOTAL 8.1 mg/dL (8.8-10.5); CREATININE 3.21 mg/dL (0.60-1.30); MAGNESIUM 2.2 mg/dL (1.80-2.40); PHOSPHORUS 3.6 mg/dL (2.5-4.9); TOTAL PROTEIN, SERUM 7.4 g/dL (6.4-8.2)
[2017-03-31] MEDS: INSULIN ASPART 100 UNITS/ML SQ PRN ×3 (06:25→17:55)
[2017-03-31 06:38] LABS: BASOPHILS % (AUTO) 0.1 % (0.0-2.0); EOSINOPHILS % (AUTO) 0.6 % (1.0-6.0); HEMATOCRIT 24.1 % (41-53); HEMOGLOBIN 8.3 g/dL (13.5-17.5); LYMPHOCYTES # (AUTO) 0.4 K/uL (1.0-4.8); LYMPHOCYTES % (AUTO) 4.3 % (22.0-44.0); MEAN CORPUSCULAR HEMOGLOBIN 30.7 pg (26.0-34.0); MEAN CORPUSCULAR HGB CONC 34.3 G/dL (31.0-37.0); MEAN CORPUSCULAR VOLUME 90 fL (80-100); MONOCYTES # (AUTO) 0.5 K/uL (0.1-1.0); MONOCYTES % (AUTO) 4.8 % (2.0-9.0); NEUTROPHILS # (AUTO) 9.3 K/uL (1.8-7.7); PLATELET COUNT (AUTO) 269 K/uL (150-450); RED BLOOD CELL COUNT(AUTO) 2.68 MIL/uL (4.50-5.90); RED CELL DISTRIBUTION WIDTH 18.2 % (11.5-14.5); WHITE BLOOD COUNT (AUTO) 10.3 K/uL (4.5-11.0)
[2017-03-31 06:56] LABS: NEUTROPHILS % (AUTO) 90.2 % (40.0-70.0)
[2017-03-31 08:01] VITALS: BP 118/80
[2017-03-31 08:39] LABS: RBC MORPHOLOGY COMMENT ABNORMAL RBC MORPH
[2017-03-31] MEDS: ALBUMIN HUMAN 25%-25GM/100ML 100 ML IV SCH (08:58)
[2017-03-31] MEDS: NICOTINE 21 MG/24 HOUR PATCH TD SCH (08:59)
[2017-03-31] MEDS: FOLIC ACID 1 MG TABLET PO SCH (08:59)
[2017-03-31] MEDS: DOCUSATE SODIUM 100 MG CAPSULE PO SCH (08:59)
[2017-03-31] MEDS: DILTIAZEM HCL 30 MG TABLET PO SCH ×2 (09:00→17:02)
[2017-03-31] MEDS: RIFAXIMIN 550 MG TABLET PO SCH ×2 (09:00→17:02)
[2017-03-31] MEDS: BISACODYL 10 MG RECTAL RECTAL SUPPOSITORY PR SCH (09:00)
[2017-03-31] MEDS: FAMOTIDINE 20 MG TABLET PO SCH (09:00)
[2017-03-31] MEDS: SUCRALFATE 1 GM TABLET PO SCH ×3 (09:01→17:02)
[2017-03-31] MEDS: MULTIVITAMINS, THERAPEUTIC TABLET PO SCH (09:01)
[2017-03-31] MEDS: AMIODARONE HCL 200 MG TABLET PO SCH (09:01)
[2017-03-31] MEDS: PANTOPRAZOLE SODIUM 40 MG/VIAL IVP SCH (09:01)
[2017-03-31] MEDS: LACTULOSE 20 GM/30 ML SOLUTION UDCUP PO SCH ×3 (09:02→17:02)
[2017-03-31] MEDS: THIAMINE HCL 100 MG TABLET PO SCH (09:02)
[2017-03-31] MEDS: VANCOMYCIN HCL 750 MG in DEXTROSE 5%-WATER 150 ML IV SCH (10:59)
[2017-03-31 11:40] VITALS: BP 108/60
[2017-03-31 12:18] LABS: GLUCOSE COMMENT 1 Received Meds; GLUCOSE,POINT OF CARE 169 MG/DL (70-110)
[2017-03-31 12:18] LABS: GLUCOSE,POINT OF CARE 130 MG/DL (70-110)
[2017-03-31 16:33] VITALS: BP 124/66
[2017-03-31] MEDS ORDERED: CEFE2I IV (18:19)
[2017-03-31] MEDS ORDERED: CEFE2PIG2 IV (18:21)
[2017-03-31] MEDS ORDERED: EPOE10IM SQ (18:24)
[2017-03-31] MEDS ORDERED: LACT30L PO (18:25)
[2017-03-31] MEDS ORDERED: RIFAX550 PO (18:34)
[2017-04-01 07:17] LABS: GLUCOSE COMMENT 1 Received Meds; GLUCOSE,POINT OF CARE 217 MG/DL (70-110)
[2017-04-01] MEDS ORDERED: EPOETIN ALFA 10,000 UNITS/ML VIAL SQ SCH (09:00)
== END 2017-03-31 18:35 | DRG 377 ==
LOC: EMS 15:50 → 5N 18:31 → 5S 03-21 20:07
PROVIDERS: ADMIT Internal Medicine; ATTEND Internal Medicine
PROC: 30233N1 Transfusion of Nonautologous Red Blood Cells into Peripheral Vein, Percutaneous Approach (ICD-10-PCS; 2017-03-19)
PROC: 0DJ08ZZ Inspection of Upper Intestinal Tract, Via Natural or Artificial Opening Endoscopic (ICD-10-PCS; principal; 2017-03-20 09:00)
PROC: 0DH67UZ Insertion of Feeding Device into Stomach, Via Natural or Artificial Opening (ICD-10-PCS; 2017-03-24)
PROC: 0T9B70Z Drainage of Bladder with Drainage Device, Via Natural or Artificial Opening (ICD-10-PCS; 2017-03-29)
DX: K92.2 Gastrointestinal hemorrhage, unspecified (principal); N17.0 Acute kidney failure with tubular necrosis; E43 Unspecified severe protein-calorie malnutrition; G93.41 Metabolic encephalopathy; L89.153 Pressure ulcer of sacral region, stage 3; I95.9 Hypotension, unspecified; E11.22 Type 2 diabetes mellitus with diabetic chronic kidney disease; K31.84 Gastroparesis; E87.1 Hypo-osmolality and hyponatremia; R18.8 Other ascites; M86.9 Osteomyelitis, unspecified; E87.2 Acidosis; E87.0 Hyperosmolality and hypernatremia; I13.0 Hypertensive heart and chronic kidney disease with heart failure and stage 1 through stage 4 chronic kidney disease, or unspecified chronic kidney disease; K80.10 Calculus of gallbladder with chronic cholecystitis without obstruction; K72.90 Hepatic failure, unspecified without coma; E86.0 Dehydration; E11.42 Type 2 diabetes mellitus with diabetic polyneuropathy; E11.65 Type 2 diabetes mellitus with hyperglycemia; N18.9 Chronic kidney disease, unspecified; D64.9 Anemia, unspecified; E11.51 Type 2 diabetes mellitus with diabetic peripheral angiopathy without gangrene; E11.69 Type 2 diabetes mellitus with other specified complication; D50.0 Iron deficiency anemia secondary to blood loss (chronic); E11.43 Type 2 diabetes mellitus with diabetic autonomic (poly)neuropathy; E78.00 Pure hypercholesterolemia, unspecified; E78.5 Hyperlipidemia, unspecified; E87.6 Hypokalemia; I50.9 Heart failure, unspecified; K21.9 Gastro-esophageal reflux disease without esophagitis; K59.00 Constipation, unspecified; K74.60 Unspecified cirrhosis of liver; N28.1 Cyst of kidney, acquired; R33.9 Retention of urine, unspecified; T36.8X5A Adverse effect of other systemic antibiotics, initial encounter; F10.20 Alcohol dependence, uncomplicated; F15.10 Other stimulant abuse, uncomplicated; D63.8 Anemia in other chronic diseases classified elsewhere; F29 Unspecified psychosis not due to a substance or known physiological condition; D63.1 Anemia in chronic kidney disease; Y92.89 Other specified places as the place of occurrence of the external cause; Y93.89 Activity, other specified; Y99.8 Other external cause status; Z86.14 Personal history of Methicillin resistant Staphylococcus aureus infection; Z88.0 Allergy status to penicillin; Z79.899 Other long term (current) drug therapy; Z79.01 Long term (current) use of anticoagulants; Z86.19 Personal history of other infectious and parasitic diseases; Z89.422 Acquired absence of other left toe(s); Z89.421 Acquired absence of other right toe(s); Z68.25 Body mass index [BMI] 25.0-25.9, adult; Z87.891 Personal history of nicotine dependence; Z83.3 Family history of diabetes mellitus; Z82.49 Family history of ischemic heart disease and other diseases of the circulatory system
CPT/HCPCS: 70450; 74176; 76700; 76770; 78226; 82247; 82248; 82271; 82570; 82962; 83605; 83735; 83935; 84100; 84156; 84166; 84300; 85014; 85018; 86850; 86900; 86901; 86920; 87081; 87086; 89050; 92526; 92610; 93306; 93880; 96360; 96361; 97167; 99285; A9537; C9113; J0692; J0885; J1644; J1815; J2060; J2405; J2704; J2765; J3370; J3490; J7030; J7050; J7060; P9016; P9046

== ENCOUNTER 2017-04-02 09:55 | Inpatient (IN) | payer OTHER, MEDICAID ==
[~2017-04-02] VITALS: Ht 180.3 cm; Wt 84.1 kg
[~2017-04-02 09:55] MED LIST changes: -ACET-66 PO; -CEFE2I IVP; +CEFE2PIG2 IV; -COLL30OI TP; +EPOE10IM SQ; -FE PR; -GABA-533 PO; -HEPA500018 SQ; -INSULIN LISPRO SQ; -LISI-661 PO; -MOM30 PO; -RISP1 PO; -VANC750F IV
[2017-04-02] MEDS ORDERED: DEXTROSE 50%-WATER 25 GM/50 ML SYRINGE IVP ONE (10:15)
[2017-04-02 10:34] LABS: BASOPHILS # (AUTO) 0.03 K/uL (0.00-0.20); BASOPHILS % (AUTO) 0.6 % (0.0-2.0); EOSINOPHILS # (AUTO) 0.03 K/uL (0.00-0.70); EOSINOPHILS % (AUTO) 0.63 % (1.0-6.0); HEMATOCRIT 26.7 % (41-53); HEMOGLOBIN 8.7 g/dL (13.5-17.5); LYMPHOCYTES # (AUTO) 0.9 K/uL (1.0-4.8); LYMPHOCYTES % (AUTO) 17.3 % (22.0-44.0); MEAN CORPUSCULAR HEMOGLOBIN 27.6 pg (26.0-34.0); MEAN CORPUSCULAR HGB CONC 32.7 G/dL (31.0-37.0); MEAN CORPUSCULAR VOLUME 84 fL (80-100); MONOCYTES # (AUTO) 0.3 K/uL (0.1-1.0); MONOCYTES % (AUTO) 6.4 % (2.0-9.0); NEUTROPHILS % (AUTO) 75.1 % (40.0-70.0); PLATELET COUNT (AUTO) 281 K/uL (150-450); RED BLOOD CELL COUNT(AUTO) 3.16 MIL/uL (4.50-5.90); RED CELL DISTRIBUTION WIDTH 17.9 % (11.5-14.5); WHITE BLOOD COUNT (AUTO) 5.3 K/uL (4.5-11.0)
[2017-04-02 10:41] LABS: ANION GAP 13 mmol/L (8-16); CALCIUM, TOTAL 8.9 mg/dL (8.8-10.5); CARBON DIOXIDE 20 mmol/L (22-29); CHLORIDE 110 mmol/L (98-107); CREATININE 3.37 mg/dL (0.60-1.30); GLOMERULAR FILTR. RATE CALC 19 mL/min (>60); POTASSIUM 3.4 mmol/L (3.5-5.1); SODIUM SERUM 143 mmol/L (136-145); UREA NITROGEN, BLOOD 78 mg/dL (7-18)
[2017-04-02 10:43] LABS: INR 1.3 (0.9-1.1)
[2017-04-02 10:47] LABS: ALANINE AMINOTRANSFERASE 25 U/L (12-78); ALBUMIN 2.1 g/dL (3.4-5.0); ASPARTATE AMINOTRANSFERASE 31 U/L (15-37); BILIRUBIN,TOTAL 0.9 mg/dL (0.1-1.0); CREATINE KINASE, TOTAL 47 U/L (39-308); TOTAL PROTEIN, SERUM 7.9 g/dL (6.4-8.2)
[2017-04-02 10:49] LABS: TROPONIN I 0.04 ng/mL (0.00-0.05)
[2017-04-02 10:55] LABS: RBC MORPHOLOGY COMMENT ABNORMAL RBC MORPH
[2017-04-02 10:59] LABS: AMMONIA < 10 umol/L (11-32)
[2017-04-02 11:02] LABS: GLUCOSE,POINT OF CARE 121 MG/DL (70-110)
[2017-04-02 11:35] LABS: APPEARANCE,URINE CLOUDY (CLEAR); GLUCOSE, URINE (UA) NEGATIVE (NEGATIVE); KETONES,URINE NEGATIVE (NEGATIVE); LEUKOCYTE ESTERASE ,URINE MODERATE (NEGATIVE); OCCULT BLOOD,URINE LARGE (NEGATIVE); PH,URINE 6.5 (5.0-8.0); PROTEIN,URINE SEE CONFIRM (NEGATIVE)
[2017-04-02 11:48] LABS: ADD UA MICROSCOPIC YES
[2017-04-02 11:49] LABS: RBC,URINE 51-100 /HPF (0-2); SULFOSALICYLIC ACID,URINE 3+ (Negative); WBC,URINE 26-50 /HPF (0-5)
[2017-04-02] MEDS ORDERED: SODIUM CHLORIDE 0.9% 1,000 ML IV ONE (12:00)
[2017-04-02] MEDS ORDERED: LORazepam 2 MG/ML VIAL IVP ONE (12:00)
[2017-04-02] MEDS ORDERED: NICO-704 TD (12:00)
[2017-04-02 12:08] LABS: GLUCOSE,POINT OF CARE 102 MG/DL (70-110)
[2017-04-02 13:23] LABS: GLUCOSE,POINT OF CARE 91 MG/DL (70-110)
[2017-04-02] MEDS ORDERED: CIPROFLOXACIN 400 MG/D5% WATER 200 ML IV ONE (13:45)
[2017-04-02] MEDS ORDERED: *CLINICAL-LEVOFLOXACIN IVPB DOSING CLINICAL ONE ×2 (14:00)
[2017-04-02] MEDS ORDERED: LEVOFLOXACIN 750 MG/D5% WATER 150 ML IV ONE (14:15)
[2017-04-02] MEDS ORDERED: BISACODYL 10 MG RECTAL RECTAL SUPPOSITORY PR PRN (15:15)
[2017-04-02] MEDS ORDERED: MAGNESIUM HYDROXIDE SUSPENSION 30 ML UDCUP PO PRN (15:15)
[2017-04-02] MEDS ORDERED: ACETAMINOPHEN 325 MG TABLET PO PRN (15:15)
[2017-04-02] MEDS ORDERED: ZOLPIDEM TARTRATE 5 MG TABLET PO PRN (15:15)
[2017-04-02] MEDS ORDERED: ONDANSETRON HCL 4 MG/2 ML VIAL IVP PRN (15:15)
[2017-04-02] MEDS ORDERED: DEXTROSE IV SCH (15:15)
[2017-04-02] MEDS ORDERED: [UNRECOGNIZED DRUG - OTHER] IV SCH (15:15)
[2017-04-02] MEDS ORDERED: CEFEPIME HCL IV SCH (15:15)
[2017-04-02] MEDS ORDERED: VANCOMYCIN HCL 750 MG in DEXTROSE 5%-WATER 150 ML IV ONE (16:00)
[2017-04-02] MEDS ORDERED: VANCOMYCIN HCL 1 GM/D5% WATER 200 ML IV PRN (16:00)
[2017-04-02 16:55] VITALS: BP 113/55
[2017-04-02] MEDS ORDERED: SODIUM CHLORIDE 0.9% 250 ML IV ONE (17:07)
[2017-04-02] MEDS: CEFEPIME HCL 2 GM in DEXTROSE 5%-WATER 50 ML IV SCH (17:38)
[2017-04-02] MEDS: LACTULOSE 20 GM/30 ML SOLUTION UDCUP PO SCH ×2 (17:38→18:09)
[2017-04-02] MEDS: SUCRALFATE 1 GM TABLET PO SCH ×2 (17:39→18:09)
[2017-04-02] MEDS: HEPARIN SODIUM,PORCINE 5,000 UNITS/ML VIAL SQ SCH (17:39)
[2017-04-02] MEDS: DILTIAZEM HCL 30 MG TABLET PO SCH ×2 (17:39→18:09)
[2017-04-02 19:19] VITALS: BP 120/46
[2017-04-02] MEDS: DOCUSATE SODIUM 100 MG CAPSULE PO SCH (21:00)
[2017-04-02] MEDS: LACTULOSE 200 GM/300 ML RECTAL SOLUTION PR SCH (21:00)
[2017-04-02] MEDS ORDERED: LACTULOSE 20 GM/30 ML SOLUTION UDCUP PO SCH (21:00)
[2017-04-02] MEDS: AMIODARONE HCL 200 MG TABLET PO SCH (21:00)
[2017-04-02] MEDS: PANTOPRAZOLE SODIUM 40 MG/VIAL IVP SCH (21:34)
[2017-04-02 23:17] VITALS: BP 118/48
[2017-04-03] MEDS: HEPARIN SODIUM,PORCINE 5,000 UNITS/ML VIAL SQ SCH ×3 (00:21→16:52)
[2017-04-03 00:43] LABS: GLUCOSE,POINT OF CARE 124 MG/DL (70-110)
[2017-04-03 00:43] LABS: GLUCOSE,POINT OF CARE 110 MG/DL (70-110)
[2017-04-03] MEDS ORDERED: INFLUENZA VIRUS VACCINE QVS 2017-18 (3YR+)/PF 60 MCG/0.5 ML SYRINGE IM ONE (01:30)
[2017-04-03] MEDS: CEFEPIME HCL 2 GM in DEXTROSE 5%-WATER 50 ML IV SCH ×2 (03:21→16:52)
[2017-04-03 04:09] VITALS: BP 121/64
[2017-04-03 06:55] LABS: ALBUMIN 1.7 g/dL (3.4-5.0); BILIRUBIN,TOTAL 0.7 mg/dL (0.1-1.0); CALCIUM, TOTAL 8.5 mg/dL (8.8-10.5); CREATININE 3.29 mg/dL (0.60-1.30); POTASSIUM 3.3 mmol/L (3.5-5.1); TOTAL PROTEIN, SERUM 6.6 g/dL (6.4-8.2)
[2017-04-03 07:33] LABS: GLUCOSE,POINT OF CARE 144 MG/DL (70-110)
[2017-04-03 07:47] VITALS: BP 117/58
[2017-04-03] MEDS: AMIODARONE HCL 200 MG TABLET PO SCH ×2 (09:00→21:00)
[2017-04-03] MEDS: SUCRALFATE 1 GM TABLET PO SCH ×4 (09:00→21:00)
[2017-04-03] MEDS: DILTIAZEM HCL 30 MG TABLET PO SCH ×3 (09:00→21:00)
[2017-04-03] MEDS: FOLIC ACID 1 MG TABLET PO SCH (09:00)
[2017-04-03] MEDS: THIAMINE HCL 100 MG TABLET PO SCH (09:00)
[2017-04-03] MEDS: DOCUSATE SODIUM 100 MG CAPSULE PO SCH ×2 (09:00→21:00)
[2017-04-03] MEDS: LACTULOSE 20 GM/30 ML SOLUTION UDCUP PO SCH (09:00)
[2017-04-03] MEDS: LACTULOSE 200 GM/300 ML RECTAL SOLUTION PR SCH ×3 (09:00→22:19)
[2017-04-03] MEDS: PANTOPRAZOLE SODIUM 40 MG/VIAL IVP SCH ×2 (09:01→22:02)
[2017-04-03] MEDS: BISACODYL 10 MG RECTAL RECTAL SUPPOSITORY PR SCH ×2 (10:40→14:56)
[2017-04-03] MEDS ORDERED: SODIUM CHLORIDE 0.45% 1,000 ML IV SCH (11:30)
[2017-04-03] MEDS ORDERED: POTASSIUM CHL 10 MEQ/WATER 50 ML IV ONE ×2 (11:30→12:30)
[2017-04-03 11:58] VITALS: BP 106/60
[2017-04-03] MEDS ORDERED: SODIUM CHLORIDE 0.9% 1,000 ML IV SCH (12:00)
[2017-04-03] MEDS ORDERED: LORazepam 2 MG/ML VIAL IVP ONE (12:15)
[2017-04-03] MEDS: SODIUM CHLORIDE 0.45% 1,000 ML IV SCH (12:24)
[2017-04-03] MEDS ORDERED: SODIUM CHLORIDE 0.9% IRRIG BTL 1,000 ML IRRIG ONE ×2 (14:50→22:15)
[2017-04-03 15:22] VITALS: BP 107/45
[2017-04-03 16:04] LABS: ADD UA MICROSCOPIC YES; APPEARANCE,URINE CLEAR (CLEAR); GLUCOSE, URINE (UA) NEGATIVE (NEGATIVE); KETONES,URINE NEGATIVE (NEGATIVE); LEUKOCYTE ESTERASE ,URINE SMALL (NEGATIVE); OCCULT BLOOD,URINE LARGE (NEGATIVE); PROTEIN,URINE SEE CONFIRM (NEGATIVE)
[2017-04-03 16:11] LABS: RBC,URINE 26-50 /HPF (0-2); SQUAMOUS EPITHELIAL CELL,UR Few /LPF (None Seen); SULFOSALICYLIC ACID,URINE 2+ (Negative)
[2017-04-03 16:12] LABS: WBC,URINE 26-50 /HPF (0-5)
[2017-04-03 19:15] VITALS: BP 118/63
[2017-04-03 20:40] LABS: GLUCOSE,POINT OF CARE 122 MG/DL (70-110)
[2017-04-03 23:55] VITALS: BP 107/60
[2017-04-04] MEDS: HEPARIN SODIUM,PORCINE 5,000 UNITS/ML VIAL SQ SCH ×4 (01:33→23:09)
[2017-04-04] MEDS: CEFEPIME HCL 2 GM in DEXTROSE 5%-WATER 50 ML IV SCH ×2 (03:32→17:51)
[2017-04-04] MEDS: SODIUM CHLORIDE 0.45% 1,000 ML IV SCH (03:33)
[2017-04-04 04:02] VITALS: BP 123/59
[2017-04-04 05:58] LABS: GLUCOSE,POINT OF CARE 118 MG/DL (70-110)
[2017-04-04 07:32] VITALS: BP 131/64
[2017-04-04 08:35] LABS: ALBUMIN 1.7 g/dL (3.4-5.0); BILIRUBIN,TOTAL 0.7 mg/dL (0.1-1.0); CALCIUM, TOTAL 8.6 mg/dL (8.8-10.5); CREATININE 3.24 mg/dL (0.60-1.30); POTASSIUM 3.3 mmol/L (3.5-5.1)
[2017-04-04] MEDS: DOCUSATE SODIUM 100 MG CAPSULE PO SCH ×2 (09:00→21:00)
[2017-04-04] MEDS: DILTIAZEM HCL 30 MG TABLET PO SCH ×3 (09:00→21:00)
[2017-04-04] MEDS: THIAMINE HCL 100 MG TABLET PO SCH (09:00)
[2017-04-04] MEDS: FOLIC ACID 1 MG TABLET PO SCH (09:00)
[2017-04-04] MEDS: AMIODARONE HCL 200 MG TABLET PO SCH ×2 (09:00→21:00)
[2017-04-04] MEDS: SUCRALFATE 1 GM TABLET PO SCH ×4 (09:00→21:00)
[2017-04-04] MEDS: LACTULOSE 200 GM/300 ML RECTAL SOLUTION PR SCH ×3 (09:33→21:11)
[2017-04-04] MEDS: VANCOMYCIN HCL 750 MG in DEXTROSE 5%-WATER 150 ML IV SCH (09:33)
[2017-04-04] MEDS: PANTOPRAZOLE SODIUM 40 MG/VIAL IVP SCH ×2 (09:33→21:11)
[2017-04-04] MEDS ORDERED: SODIUM CHLORIDE 0.9% IRRIG BTL 1,000 ML IRRIG ONE ×2 (10:22→21:41)
[2017-04-04 12:02] VITALS: BP 113/56
[2017-04-04] MEDS: POTASSIUM CHL 10 MEQ/WATER 50 ML IV SCH ×2 (13:54→15:43)
[2017-04-04] MEDS: BISACODYL 10 MG RECTAL RECTAL SUPPOSITORY PR SCH (13:55)
[2017-04-04] MEDS: DEXTROSE 5%-WATER 1,000 ML IV SCH (13:55)
[2017-04-04 14:59] VITALS: BP_SYST 111; BP_SYST 125; BP_DIAS 64; BP_DIAS 87
[2017-04-04 15:54] LABS: THYROID STIMULATING HORMONE 31.93 uIU/mL (0.36-3.74)
[2017-04-04 18:32] LABS: BASOPHILS % (AUTO) 0.8 % (0.0-2.0); EOSINOPHILS % (AUTO) 2.7 % (1.0-6.0); HEMATOCRIT 25.8 % (41-53); HEMOGLOBIN 8.7 g/dL (13.5-17.5); LYMPHOCYTES # (AUTO) 1.3 K/uL (1.0-4.8); MEAN CORPUSCULAR HEMOGLOBIN 28.4 pg (26.0-34.0); MEAN CORPUSCULAR HGB CONC 33.7 G/dL (31.0-37.0); MEAN CORPUSCULAR VOLUME 84 fL (80-100); MONOCYTES # (AUTO) 0.6 K/uL (0.1-1.0); MONOCYTES % (AUTO) 13.3 % (2.0-9.0); NEUTROPHILS # (AUTO) 2.1 K/uL (1.8-7.7); NEUTROPHILS % (AUTO) 51.2 % (40.0-70.0); PLATELET COUNT (AUTO) 263 K/uL (150-450); RED BLOOD CELL COUNT(AUTO) 3.06 MIL/uL (4.50-5.90); RED CELL DISTRIBUTION WIDTH 18.3 % (11.5-14.5); WHITE BLOOD COUNT (AUTO) 4.2 K/uL (4.5-11.0)
[2017-04-04 18:36] LABS: CALCIUM, TOTAL 8.7 mg/dL (8.8-10.5); CREATININE 3.27 mg/dL (0.60-1.30); POTASSIUM 3.7 mmol/L (3.5-5.1)
[2017-04-04 18:41] LABS: ALBUMIN 1.8 g/dL (3.4-5.0); BILIRUBIN,TOTAL 0.7 mg/dL (0.1-1.0); TOTAL PROTEIN, SERUM 7.3 g/dL (6.4-8.2)
[2017-04-04 19:12] LABS: ALLEN TEST, BLOOD GAS Positive
[2017-04-04 19:13] LABS: ABG BASE EXCESS -10.3 mmol/L (-2.0-3.0); ABG OXYHEMOGLOBIN 87.2 % (94.0-100.0); ABG PCO2 25 mmHg (35-45); ABG PH 7.383 (7.35-7.450); TEMPERATURE, FAHRENHEIT, BG 98.6 FAHREN (96.0-98.6)
[2017-04-04 19:14] LABS: ABG A-A DIFF O2 110.8 mmHg (10-20.0)
[2017-04-04 19:42] VITALS: BP 126/69
[2017-04-04] MEDS: CITRIC ACID/SODIUM CITRATE 30 ML SOLUTION UDCUP PO SCH (21:00)
[2017-04-04 21:09] LABS: RBC MORPHOLOGY COMMENT ABNORMAL RBC MORPH
[2017-04-05] VITALS (7 sets, daily range): BP systolic 105–130; BP diastolic 56–78
[2017-04-05] MEDS: CEFEPIME HCL 2 GM in DEXTROSE 5%-WATER 50 ML IV SCH ×2 (03:09→17:22)
[2017-04-05] MEDS: DEXTROSE 5%-WATER 1,000 ML IV SCH ×2 (03:18→08:15)
[2017-04-05 06:35] LABS: BASOPHILS % (AUTO) 1.2 % (0.0-2.0); EOSINOPHILS % (AUTO) 3.1 % (1.0-6.0); HEMATOCRIT 25.5 % (41-53); HEMOGLOBIN 8.7 g/dL (13.5-17.5); LYMPHOCYTES # (AUTO) 1.2 K/uL (1.0-4.8); LYMPHOCYTES % (AUTO) 31.9 % (22.0-44.0); MEAN CORPUSCULAR HGB CONC 34.2 G/dL (31.0-37.0); MEAN CORPUSCULAR VOLUME 88 fL (80-100); MONOCYTES # (AUTO) 0.6 K/uL (0.1-1.0); MONOCYTES % (AUTO) 15.3 % (2.0-9.0); NEUTROPHILS # (AUTO) 1.8 K/uL (1.8-7.7); NEUTROPHILS % (AUTO) 48.5 % (40.0-70.0); PLATELET COUNT (AUTO) 265 K/uL (150-450); RED BLOOD CELL COUNT(AUTO) 2.92 MIL/uL (4.50-5.90); RED CELL DISTRIBUTION WIDTH 18.9 % (11.5-14.5); WHITE BLOOD COUNT (AUTO) 3.7 K/uL (4.5-11.0)
[2017-04-05 07:17] LABS: ALBUMIN 1.7 g/dL (3.4-5.0); BILIRUBIN,TOTAL 0.7 mg/dL (0.1-1.0); CALCIUM, TOTAL 8.6 mg/dL (8.8-10.5); CREATININE 3.11 mg/dL (0.60-1.30); POTASSIUM 3.4 mmol/L (3.5-5.1); TOTAL PROTEIN, SERUM 7.3 g/dL (6.4-8.2)
[2017-04-05 08:33] LABS: RBC MORPHOLOGY COMMENT ABNORMAL RBC MORPH
[2017-04-05] MEDS ORDERED: SODIUM CHLORIDE 0.9% IRRIG BTL 1,000 ML IRRIG ONE (08:39)
[2017-04-05] MEDS: HEPARIN SODIUM,PORCINE 5,000 UNITS/ML VIAL SQ SCH ×2 (08:41→15:47)
[2017-04-05] MEDS: LEVOTHYROXINE SODIUM 100 MCG VIAL IVP SCH (08:42)
[2017-04-05] MEDS: LACTULOSE 200 GM/300 ML RECTAL SOLUTION PR SCH ×2 (08:42→16:00)
[2017-04-05] MEDS: BISACODYL 10 MG RECTAL RECTAL SUPPOSITORY PR SCH (08:42)
[2017-04-05] MEDS: PANTOPRAZOLE SODIUM 40 MG/VIAL IVP SCH ×2 (08:42→20:46)
[2017-04-05] MEDS: CITRIC ACID/SODIUM CITRATE 30 ML SOLUTION UDCUP PO SCH ×2 (08:54→20:46)
[2017-04-05] MEDS: DOCUSATE SODIUM 100 MG CAPSULE PO SCH ×2 (08:55→20:46)
[2017-04-05] MEDS: SUCRALFATE 1 GM TABLET PO SCH ×4 (08:55→20:46)
[2017-04-05] MEDS: DILTIAZEM HCL 30 MG TABLET PO SCH ×3 (08:55→21:00)
[2017-04-05] MEDS: FOLIC ACID 1 MG TABLET PO SCH (08:55)
[2017-04-05] MEDS: THIAMINE HCL 100 MG TABLET PO SCH (08:56)
[2017-04-05] MEDS: AMIODARONE HCL 200 MG TABLET PO SCH ×2 (08:56→21:00)
[2017-04-05] MEDS ORDERED: POTASSIUM CHL 10 MEQ/WATER 50 ML IV ONE ×2 (09:00→11:00)
[2017-04-05] MEDS ORDERED: HALOPERIDOL LACTATE 5 MG/ML VIAL IM PRN (14:15)
[2017-04-05] MEDS ORDERED: FUROSEMIDE 40 MG/4 ML VIAL IVP ONE (14:30)
[2017-04-05 17:26] LABS: CALCIUM, TOTAL 8.7 mg/dL (8.8-10.5); CREATININE 3.19 mg/dL (0.60-1.30); MAGNESIUM 1.8 mg/dL (1.80-2.40); PHOSPHORUS 3.9 mg/dL (2.5-4.9); POTASSIUM 3.5 mmol/L (3.5-5.1)
[2017-04-05] MEDS ORDERED: SODIUM CHLORIDE 0.9% 250 ML IV ONE (17:29)
[2017-04-05] MEDS ORDERED: DEXTROSE 50%-WATER 25 GM/50 ML SYRINGE IVP PRN (19:45)
[2017-04-05 20:42] LABS: GLUCOSE COMMENT 1 Received Meds; GLUCOSE,POINT OF CARE 154 MG/DL (70-110)
[2017-04-05] MEDS: RisperiDONE 1 MG TABLET PO SCH (20:46)
[2017-04-05] MEDS: OXYGEN THERAPY IH SCH (20:47)
[2017-04-06] VITALS (8 sets, daily range): BP systolic 87–135; BP diastolic 53–62
[2017-04-06] MEDS: HEPARIN SODIUM,PORCINE 5,000 UNITS/ML VIAL SQ SCH ×3 (00:48→16:00)
[2017-04-06] MEDS: INSULIN REGULAR, HUMAN 100 UNITS/ML SQ PRN ×3 (00:50→17:45)
[2017-04-06] MEDS: CEFEPIME HCL 2 GM in DEXTROSE 5%-WATER 50 ML IV SCH ×2 (05:01→17:09)
[2017-04-06 05:41] LABS: BASOPHILS # (AUTO) 0.04 K/uL (0.00-0.20); BASOPHILS % (AUTO) 1.4 % (0.0-2.0); EOSINOPHILS # (AUTO) 0.18 K/uL (0.00-0.70); EOSINOPHILS % (AUTO) 6.99 % (1.0-6.0); HEMATOCRIT 25.6 % (41-53); HEMOGLOBIN 8.9 g/dL (13.5-17.5); LYMPHOCYTES # (AUTO) 1.1 K/uL (1.0-4.8); LYMPHOCYTES % (AUTO) 43.2 % (22.0-44.0); MEAN CORPUSCULAR HEMOGLOBIN 31.2 pg (26.0-34.0); MEAN CORPUSCULAR HGB CONC 34.6 G/dL (31.0-37.0); MEAN CORPUSCULAR VOLUME 90 fL (80-100); MONOCYTES # (AUTO) 0.5 K/uL (0.1-1.0); MONOCYTES % (AUTO) 18.6 % (2.0-9.0); NEUTROPHILS # (AUTO) 0.8 K/uL (1.8-7.7); NEUTROPHILS % (AUTO) 29.8 % (40.0-70.0); PLATELET COUNT (AUTO) 211 K/uL (150-450); RED BLOOD CELL COUNT(AUTO) 2.84 MIL/uL (4.50-5.90); RED CELL DISTRIBUTION WIDTH 18.8 % (11.5-14.5); WHITE BLOOD COUNT (AUTO) 2.6 K/uL (4.5-11.0)
[2017-04-06 05:52] LABS: ALBUMIN 1.8 g/dL (3.4-5.0); BILIRUBIN,TOTAL 0.7 mg/dL (0.1-1.0); CALCIUM, TOTAL 8.9 mg/dL (8.8-10.5); CREATININE 3.17 mg/dL (0.60-1.30); MAGNESIUM 1.8 mg/dL (1.80-2.40); PHOSPHORUS 3.7 mg/dL (2.5-4.9); POTASSIUM 3.3 mmol/L (3.5-5.1); TOTAL PROTEIN, SERUM 7.5 g/dL (6.4-8.2)
[2017-04-06 06:53] LABS: GLUCOSE,POINT OF CARE 123 MG/DL (70-110)
[2017-04-06] MEDS: LACTULOSE 20 GM/30 ML SOLUTION UDCUP PO SCH ×3 (08:00→17:09)
[2017-04-06] MEDS: CITRIC ACID/SODIUM CITRATE 30 ML SOLUTION UDCUP PO SCH ×2 (08:21→21:10)
[2017-04-06] MEDS: LEVOTHYROXINE SODIUM 100 MCG VIAL IVP SCH (08:22)
[2017-04-06] MEDS: HALOPERIDOL 5 MG TABLET PO PRN ×2 (08:22→17:09)
[2017-04-06] MEDS: SUCRALFATE 1 GM TABLET PO SCH ×4 (08:22→21:10)
[2017-04-06] MEDS: VANCOMYCIN HCL 750 MG in DEXTROSE 5%-WATER 150 ML IV SCH (08:22)
[2017-04-06] MEDS: RisperiDONE 1 MG TABLET PO SCH ×2 (08:23→21:10)
[2017-04-06] MEDS: THIAMINE HCL 100 MG TABLET PO SCH (08:23)
[2017-04-06] MEDS: FOLIC ACID 1 MG TABLET PO SCH (08:23)
[2017-04-06] MEDS: OXYGEN THERAPY IH SCH ×2 (08:24→19:59)
[2017-04-06] MEDS: DILTIAZEM HCL 30 MG TABLET PO SCH ×3 (08:26→21:00)
[2017-04-06] MEDS: DOCUSATE SODIUM 100 MG CAPSULE PO SCH ×2 (08:26→21:10)
[2017-04-06] MEDS: AMIODARONE HCL 200 MG TABLET PO SCH ×2 (08:27→21:00)
[2017-04-06] MEDS: BISACODYL 10 MG RECTAL RECTAL SUPPOSITORY PR SCH (08:27)
[2017-04-06] MEDS: PANTOPRAZOLE SODIUM 40 MG/VIAL IVP SCH ×2 (08:28→21:09)
[2017-04-06 10:42] LABS: RBC MORPHOLOGY COMMENT ABNORMAL RBC MORPH
[2017-04-06] MEDS ORDERED: POTASSIUM CHL 10 MEQ/WATER 50 ML IV ONE (11:00)
[2017-04-06] MEDS: MORPHINE SULFATE 2 MG/ML SYRINGE IVP PRN ×2 (11:51→23:16)
[2017-04-06] MEDS: DEXTROSE 5%-WATER 1,000 ML IV SCH (13:25)
[2017-04-06] MEDS: HYDROCODONE/ACETAMINOPHEN 5-325 MG TABLET PO PRN (17:10)
[2017-04-06] MEDS ORDERED: IPRATROPIUM BROMIDE 0.5 MG/2.5 ML NEB SOLUTION NEB ONE (23:08)
[2017-04-06] MEDS ORDERED: ALBUTEROL SULFATE 2.5 MG/0.5 ML NEB SOLUTION NEB ONE (23:08)
[2017-04-06] MEDS: IPRATROPIUM BROMIDE 0.5 MG/2.5 ML NEB SOLUTION NEB PRN (23:14)
[2017-04-06] MEDS: ALBUTEROL SULFATE 2.5 MG/0.5 ML NEB SOLUTION NEB PRN (23:14)
[2017-04-07] VITALS: BP 87/56
[2017-04-07] MEDS: LACTULOSE 20 GM/30 ML SOLUTION UDCUP PO SCH ×5 (00:24→23:39)
[2017-04-07] MEDS: HEPARIN SODIUM,PORCINE 5,000 UNITS/ML VIAL SQ SCH ×4 (00:25→23:39)
[2017-04-07] MEDS: INSULIN REGULAR, HUMAN 100 UNITS/ML SQ PRN ×5 (00:26→23:41)
[2017-04-07] MEDS: HYDROCODONE/ACETAMINOPHEN 5-325 MG TABLET PO PRN (00:39)
[2017-04-07 01:22] LABS: GLUCOSE,POINT OF CARE 171 MG/DL (70-110)
[2017-04-07] MEDS ORDERED: SODIUM CHLORIDE 0.9% 250 ML IV ONE (02:56)
[2017-04-07 04:00] VITALS: BP 98/54
[2017-04-07 04:55] LABS: ALBUMIN 1.7 g/dL (3.4-5.0); BILIRUBIN,TOTAL 0.6 mg/dL (0.1-1.0); CALCIUM, TOTAL 8.6 mg/dL (8.8-10.5); CREATININE 3.08 mg/dL (0.60-1.30); HEMATOCRIT 25.7 % (41-53); HEMOGLOBIN 8.6 g/dL (13.5-17.5); MAGNESIUM 1.9 mg/dL (1.80-2.40); MEAN CORPUSCULAR HEMOGLOBIN 28.6 pg (26.0-34.0); MEAN CORPUSCULAR HGB CONC 33.4 G/dL (31.0-37.0); MEAN CORPUSCULAR VOLUME 86 fL (80-100); PHOSPHORUS 3.3 mg/dL (2.5-4.9); PLATELET COUNT (AUTO) 188 K/uL (150-450); POTASSIUM 3.4 mmol/L (3.5-5.1); RED CELL DISTRIBUTION WIDTH 18.9 % (11.5-14.5)
[2017-04-07] MEDS: CEFEPIME HCL 2 GM in DEXTROSE 5%-WATER 50 ML IV SCH (05:07)
[2017-04-07 07:41] LABS: WHITE BLOOD COUNT (AUTO) 1.4 K/uL (4.5-11.0)
[2017-04-07 07:46] LABS: BASOPHILS % (MANUAL) 1 % (0-2); EOSINOPHILS % (MANUAL) 1 % (1-6); LYMPHOCYTES % (MANUAL) 47 % (22-44); TOTAL CELLS COUNTED 100
[2017-04-07] MEDS: DILTIAZEM HCL 30 MG TABLET PO SCH ×3 (07:54→20:18)
[2017-04-07 08:00] VITALS: BP 107/47
[2017-04-07] MEDS: PANTOPRAZOLE SODIUM 40 MG/VIAL IVP SCH ×2 (08:49→20:18)
[2017-04-07] MEDS: SUCRALFATE 1 GM TABLET PO SCH ×4 (08:50→20:19)
[2017-04-07] MEDS: CITRIC ACID/SODIUM CITRATE 30 ML SOLUTION UDCUP PO SCH ×2 (08:50→20:19)
[2017-04-07] MEDS: RisperiDONE 1 MG TABLET PO SCH ×2 (08:50→20:20)
[2017-04-07] MEDS: FOLIC ACID 1 MG TABLET PO SCH (08:50)
[2017-04-07] MEDS: DOCUSATE SODIUM 100 MG CAPSULE PO SCH ×2 (08:50→20:18)
[2017-04-07] MEDS: THIAMINE HCL 100 MG TABLET PO SCH (08:51)
[2017-04-07] MEDS: LEVOTHYROXINE SODIUM 100 MCG VIAL IVP SCH (08:51)
[2017-04-07] MEDS: AMIODARONE HCL 200 MG TABLET PO SCH ×2 (08:52→20:18)
[2017-04-07] MEDS: OXYGEN THERAPY IH SCH ×2 (09:21→20:17)
[2017-04-07] MEDS: IPRATROPIUM BROMIDE 0.5 MG/2.5 ML NEB SOLUTION NEB PRN ×2 (09:32→20:06)
[2017-04-07] MEDS: ALBUTEROL SULFATE 2.5 MG/0.5 ML NEB SOLUTION NEB PRN ×2 (09:32→20:06)
[2017-04-07] MEDS: DEXTROSE 5%-WATER 1,000 ML IV SCH (11:48)
[2017-04-07 12:00] VITALS: BP 111/57
[2017-04-07 14:14] VITALS: BP 93/49
[2017-04-07] MEDS: CEFEPIME HCL 1 GM in DEXTROSE 5%-WATER 50 ML IV SCH (15:38)
[2017-04-07 18:03] LABS: GLUCOSE,POINT OF CARE 179 MG/DL (70-110)
[2017-04-07 18:03] LABS: GLUCOSE COMMENT 1 Received Meds; GLUCOSE,POINT OF CARE 150 MG/DL (70-110)
[2017-04-07 18:03] LABS: GLUCOSE COMMENT 1 Received Meds; GLUCOSE,POINT OF CARE 231 MG/DL (70-110)
[2017-04-07 18:04] LABS: GLUCOSE,POINT OF CARE 170 MG/DL (70-110)
[2017-04-07 18:08] LABS: GLUCOSE,POINT OF CARE 257 MG/DL (70-110)
[2017-04-07 19:53] VITALS: BP 97/51
[2017-04-08] VITALS (7 sets, daily range): BP systolic 69–111; BP diastolic 26–45
[2017-04-08] MEDS: DEXTROSE 5%-WATER 1,000 ML IV SCH ×2 (03:20→23:39)
[2017-04-08 05:13] LABS: ABG A-A DIFF O2 548.6 mmHg (10-20.0); ABG BASE EXCESS -9.5 mmol/L (-2.0-3.0); ABG HCO3 17.2 mmol/L (22.0-26.0); ABG OXYHEMOGLOBIN 96.1 % (94.0-100.0); ABG PCO2 43 mmHg (35-45); ABG PH 7.238 (7.35-7.450); ALLEN TEST, BLOOD GAS POSITIVE; TEMPERATURE, FAHRENHEIT, BG 98.6 FAHREN (96.0-98.6)
[2017-04-08] MEDS: LACTULOSE 20 GM/30 ML SOLUTION UDCUP PO SCH ×4 (05:54→23:38)
[2017-04-08] MEDS: INSULIN REGULAR, HUMAN 100 UNITS/ML SQ PRN ×2 (06:27→23:44)
[2017-04-08 06:52] LABS: HEMATOCRIT 22.4 % (41-53); HEMOGLOBIN 7.5 g/dL (13.5-17.5); MEAN CORPUSCULAR HEMOGLOBIN 28.2 pg (26.0-34.0); MEAN CORPUSCULAR HGB CONC 33.3 G/dL (31.0-37.0); MEAN CORPUSCULAR VOLUME 85 fL (80-100); PLATELET COUNT (AUTO) 151 K/uL (150-450); RED BLOOD CELL COUNT(AUTO) 2.65 MIL/uL (4.50-5.90); RED CELL DISTRIBUTION WIDTH 20.1 % (11.5-14.5); WHITE BLOOD COUNT (AUTO) 1.7 K/uL (4.5-11.0)
[2017-04-08 07:20] LABS: ALBUMIN 1.5 g/dL (3.4-5.0); BILIRUBIN,TOTAL 0.5 mg/dL (0.1-1.0); CALCIUM, TOTAL 8.1 mg/dL (8.8-10.5); CREATININE 3.18 mg/dL (0.60-1.30); MAGNESIUM 1.8 mg/dL (1.80-2.40); PHOSPHORUS 3.9 mg/dL (2.5-4.9); POTASSIUM 3.6 mmol/L (3.5-5.1); TOTAL PROTEIN, SERUM 6.5 g/dL (6.4-8.2)
[2017-04-08 07:32] LABS: BAND NEUTROPHILS % (MANUAL) 4 % (1-5); EOSINOPHILS % (MANUAL) 1 % (1-6); LYMPHOCYTES % (MANUAL) 40 % (22-44); METAMYELOCYTES % 3 % (0-0); MYELOCYTES % 1 % (0-0); TOTAL CELLS COUNTED 100
[2017-04-08 07:33] LABS: RBC MORPHOLOGY COMMENT ABNORMAL R; WBC MORPHOLOGY TOXIC GRANULATION
[2017-04-08 07:36] LABS: INR 1.3 (0.9-1.1)
[2017-04-08] MEDS: HEPARIN SODIUM,PORCINE 5,000 UNITS/ML VIAL SQ SCH ×3 (08:00→23:39)
[2017-04-08] MEDS: LEVOTHYROXINE SODIUM 100 MCG VIAL IVP SCH (08:18)
[2017-04-08] MEDS: OXYGEN THERAPY IH SCH ×2 (08:18→23:17)
[2017-04-08] MEDS: PANTOPRAZOLE SODIUM 40 MG/VIAL IVP SCH ×2 (08:19→20:58)
[2017-04-08] MEDS: DILTIAZEM HCL 30 MG TABLET PO SCH ×3 (08:19→20:58)
[2017-04-08] MEDS: AMIODARONE HCL 200 MG TABLET PO SCH ×2 (08:19→20:59)
[2017-04-08] MEDS: FOLIC ACID 1 MG TABLET PO SCH (08:20)
[2017-04-08] MEDS: DOCUSATE SODIUM 100 MG CAPSULE PO SCH ×2 (08:20→21:00)
[2017-04-08] MEDS: CITRIC ACID/SODIUM CITRATE 30 ML SOLUTION UDCUP PO SCH ×2 (08:21→20:59)
[2017-04-08] MEDS: RisperiDONE 1 MG TABLET PO SCH ×2 (08:21→21:00)
[2017-04-08] MEDS: THIAMINE HCL 100 MG TABLET PO SCH (08:21)
[2017-04-08] MEDS: SUCRALFATE 1 GM TABLET PO SCH ×5 (08:21→20:58)
[2017-04-08 08:24] LABS: IGG (IMMUNOFIXATION) 2148 mg/dL (700-1600)
[2017-04-08] MEDS ORDERED: SODIUM CHLORIDE 0.9% 250 ML IV ONE (13:15)
[2017-04-08] MEDS: CEFEPIME HCL 1 GM in DEXTROSE 5%-WATER 50 ML IV SCH (16:30)
[2017-04-08 17:06] LABS: ALBUMIN/GLOBULIN RAITO (PEP) 0.6 (0.7-1.7); ALPHA-1 GLOBULINS(PEP) 0.4 g/dL (0.0-0.4); ALPHA-2 GLOBULINS (PEP) 0.8 g/dL (0.4-1.0); BETA (PEP) 0.9 g/dL (0.7-1.3); GAMMA GLOBULINS (PEP) 2.2 g/dL (0.4-1.8); GLOBULIN TOTAL (PEP) 4.2 g/dL (2.2-3.9); M-SPIKE (PEP) Not Observed g/dL (Not Observed); TOTAL PROTEIN 6.6 g/dL (6.0-8.5)
[2017-04-09] VITALS (7 sets, daily range): BP systolic 101–162; BP diastolic 41–64
[2017-04-09 04:07] LABS: GLUCOSE,POINT OF CARE 250 MG/DL (70-110)
[2017-04-09 04:07] LABS: GLUCOSE,POINT OF CARE 208 MG/DL (70-110)
[2017-04-09 04:07] LABS: GLUCOSE,POINT OF CARE 207 MG/DL (70-110)
[2017-04-09 04:07] LABS: GLUCOSE,POINT OF CARE 121 MG/DL (70-110)
[2017-04-09 04:08] LABS: GLUCOSE,POINT OF CARE 126 MG/DL (70-110)
[2017-04-09 04:17] LABS: GLUCOSE,POINT OF CARE 288 MG/DL (70-110)
[2017-04-09 04:18] LABS: GLUCOSE COMMENT 1 Received Meds; GLUCOSE,POINT OF CARE 211 MG/DL (70-110)
[2017-04-09] MEDS: LACTULOSE 20 GM/30 ML SOLUTION UDCUP PO SCH ×3 (05:48→18:00)
[2017-04-09] MEDS: INSULIN REGULAR, HUMAN 100 UNITS/ML SQ PRN ×3 (05:52→18:29)
[2017-04-09 06:25] LABS: ALBUMIN 1.6 g/dL (3.4-5.0); BILIRUBIN,TOTAL 0.6 mg/dL (0.1-1.0); CALCIUM, TOTAL 8.2 mg/dL (8.8-10.5); TOTAL PROTEIN, SERUM 6.7 g/dL (6.4-8.2)
[2017-04-09 06:50] LABS: HEMATOCRIT 22.8 % (41-53); HEMOGLOBIN 7.8 g/dL (13.5-17.5); MEAN CORPUSCULAR HEMOGLOBIN 31.1 pg (26.0-34.0); MEAN CORPUSCULAR HGB CONC 34.3 G/dL (31.0-37.0); MEAN CORPUSCULAR VOLUME 91 fL (80-100); PLATELET COUNT (AUTO) 150 K/uL (150-450); RED BLOOD CELL COUNT(AUTO) 2.52 MIL/uL (4.50-5.90); RED CELL DISTRIBUTION WIDTH 20.3 % (11.5-14.5); WHITE BLOOD COUNT (AUTO) 2.7 K/uL (4.5-11.0)
[2017-04-09 07:07] LABS: POTASSIUM 4.2 mmol/L (3.5-5.1)
[2017-04-09 07:55] LABS: BAND NEUTROPHILS % (MANUAL) 5 % (1-5); EOSINOPHILS % (MANUAL) 2 % (1-6); LYMPHOCYTES % (MANUAL) 40 % (22-44); METAMYELOCYTES % 3 % (0-0); MYELOCYTES % 2 % (0-0); RBC MORPHOLOGY COMMENT ABNORMAL R; TOTAL CELLS COUNTED 100; WBC MORPHOLOGY TOXIC GRANULATION
[2017-04-09] MEDS ORDERED: VANCOMYCIN HCL 750 MG in DEXTROSE 5%-WATER 150 ML IV SCH (08:00)
[2017-04-09] MEDS: CITRIC ACID/SODIUM CITRATE 30 ML SOLUTION UDCUP PO SCH ×2 (08:57→20:19)
[2017-04-09] MEDS: RisperiDONE 1 MG TABLET PO SCH ×2 (08:58→20:21)
[2017-04-09] MEDS: HEPARIN SODIUM,PORCINE 5,000 UNITS/ML VIAL SQ SCH ×2 (08:58→16:02)
[2017-04-09] MEDS: THIAMINE HCL 100 MG TABLET PO SCH (08:58)
[2017-04-09] MEDS: DOCUSATE SODIUM 100 MG CAPSULE PO SCH ×2 (08:58→20:21)
[2017-04-09] MEDS: SUCRALFATE 1 GM TABLET PO SCH ×4 (08:58→20:20)
[2017-04-09] MEDS: AMIODARONE HCL 200 MG TABLET PO SCH ×2 (08:58→20:20)
[2017-04-09] MEDS: LEVOTHYROXINE SODIUM 100 MCG VIAL IVP SCH (08:58)
[2017-04-09] MEDS: FOLIC ACID 1 MG TABLET PO SCH (08:58)
[2017-04-09] MEDS: PANTOPRAZOLE SODIUM 40 MG/VIAL IVP SCH ×2 (08:59→20:19)
[2017-04-09] MEDS: DILTIAZEM HCL 30 MG TABLET PO SCH ×3 (09:00→20:20)
[2017-04-09] MEDS: OXYGEN THERAPY IH SCH ×2 (09:00→20:38)
[2017-04-09] MEDS ORDERED: EPOETIN ALFA 10,000 UNITS/ML 2 ML VIAL SQ SCH (09:00)
[2017-04-09] MEDS: ALBUTEROL SULFATE 2.5 MG/0.5 ML NEB SOLUTION NEB PRN (10:45)
[2017-04-09] MEDS: IPRATROPIUM BROMIDE 0.5 MG/2.5 ML NEB SOLUTION NEB PRN (10:45)
[2017-04-09] MEDS: DEXTROSE 5%-WATER 1,000 ML IV SCH (14:13)
[2017-04-09] MEDS: MORPHINE SULFATE 2 MG/ML SYRINGE IVP PRN (15:24)
[2017-04-09] MEDS: CEFEPIME HCL 1 GM in DEXTROSE 5%-WATER 50 ML IV SCH (16:03)
[2017-04-09 16:10] LABS: ALPHA-1 URINE (ELP) 2.7 %; ALPHA-2 URINE(ELP) 17.1 %; BETA URINE(ELP) 39.7 %; GAMMA URINE(ELP) 26.5 %; TOTAL PROTEIN URINE 96.4 mg/dL (Not Estab.)
[2017-04-10 02:33] LABS: GLUCOSE COMMENT 1 Received Meds; GLUCOSE,POINT OF CARE 160 MG/DL (70-110)
[2017-04-10 02:33] LABS: GLUCOSE COMMENT 1 Received Meds; GLUCOSE,POINT OF CARE 188 MG/DL (70-110)
[2017-04-10 04:53] LABS: GLUCOSE COMMENT 1 Received Meds; GLUCOSE,POINT OF CARE 196 MG/DL (70-110)
[2017-04-13] MEDS ORDERED: VANCOMYCIN HCL 750 MG in DEXTROSE 5%-WATER 150 ML IV SCH (08:00)
== END 2017-04-09 21:09 | disposition expired | DRG 70 ==
LOC: EMS 09:57 → 5N 15:19 → ICU 04-05 16:40 → 5S 04-07 13:30
PROVIDERS: ADMIT Internal Medicine; ATTEND Internal Medicine
PROC: 5A09457 Assistance with Respiratory Ventilation, 24-96 Consecutive Hours, Continuous Positive Airway Pressure (ICD-10-PCS; principal; 2017-04-05)
DX: G93.41 Metabolic encephalopathy (principal); N17.0 Acute kidney failure with tubular necrosis; J96.01 Acute respiratory failure with hypoxia; E43 Unspecified severe protein-calorie malnutrition; J18.9 Pneumonia, unspecified organism; E87.1 Hypo-osmolality and hyponatremia; K92.2 Gastrointestinal hemorrhage, unspecified; E11.22 Type 2 diabetes mellitus with diabetic chronic kidney disease; E11.40 Type 2 diabetes mellitus with diabetic neuropathy, unspecified; L89.93 Pressure ulcer of unspecified site, stage 3; N39.0 Urinary tract infection, site not specified; M86.9 Osteomyelitis, unspecified; E87.0 Hyperosmolality and hypernatremia; I13.0 Hypertensive heart and chronic kidney disease with heart failure and stage 1 through stage 4 chronic kidney disease, or unspecified chronic kidney disease; E87.2 Acidosis; G93.49 Other encephalopathy; Z66 Do not resuscitate; I48.91 Unspecified atrial fibrillation; E86.0 Dehydration; E11.65 Type 2 diabetes mellitus with hyperglycemia; E11.69 Type 2 diabetes mellitus with other specified complication; D50.0 Iron deficiency anemia secondary to blood loss (chronic); M79.89 Other specified soft tissue disorders; K21.9 Gastro-esophageal reflux disease without esophagitis; N18.9 Chronic kidney disease, unspecified; E87.6 Hypokalemia; D72.819 Decreased white blood cell count, unspecified; E03.9 Hypothyroidism, unspecified; K74.60 Unspecified cirrhosis of liver; I50.9 Heart failure, unspecified; Z78.1 Physical restraint status; Z89.432 Acquired absence of left foot; Z87.11 Personal history of peptic ulcer disease; Z89.431 Acquired absence of right foot; Z86.14 Personal history of Methicillin resistant Staphylococcus aureus infection; Z88.0 Allergy status to penicillin; Z79.899 Other long term (current) drug therapy
CPT/HCPCS: 71250; 74000; 74176; 76604; 82570; 82784; 82805; 82962; 83540; 83550; 83605; 83615; 83735; 84100; 84155; 84156; 84165; 84166; 84300; 84443; 84540; 86334; 87040; 87081; 87086; 89050; 90471; 93005; 93970; 94640; 94660; 96361; 96365; 96366; 96374; 96375; 99285; C9113; J0692; J0885; J1644; J1940; J1956; J2060; J2270; J3370; J3480; J3490; J7050; J7060